=== PATIENT | female | born 1970 | race Hispanic/Latino ===

== ENCOUNTER 2016-08-07 13:57 | Emergency (ER) | payer MEDICAID ==
[2016-08-07 13:57] VITALS: BMI 26.0
[2016-08-07 14:27] VITALS: RESP 20
--- NOTE | 2016-08-07 14:43 | ED PDOC ---
Arrival/HPI - General Chief Complaint: Dental Pain Time Seen by Provider: 08/07/16 14:27 Historian: Patient - History of Present Illness Narrative History of Present Illness (Text): 08/07/16 14:40 45yo female present with complaint of left sided upper gum pain/swelling. States she was achy and feverish the last few days ago. Developed blister on her hard palate. States it resolved and then came to the left upper gum. Denies drooling, dsphagia, current fever, chills, discharge, any other complaint. Past Medical History - Provider Review Nursing Documentation Reviewed: Yes - Past History Past History: No Previous - Infectious Disease Hx of Infectious Diseases: None - Tetanus Immunization Tetanus Immunization: Unknown - Reproductive Menopause: Yes - Pulmonary Hx Bronchitis: Yes - Musculoskeletal/Rheumatological Hx Falls: No - Gastrointestinal Hx Gastrointestinal Ulcer: Yes - Genitourinary/Gynecological Hx Reproductive Disorders: Yes (ENDOMETRIOSIS/LOBULAR UTERUS) - Psychiatric Hx Depression: Yes Hx Emotional Abuse: No Hx Physical Abuse: No Hx Substance Use: No Other/Comment: ADHD - Surgical History Hx Appendectomy: Yes Hx Tonsillectomy: Yes - Anesthesia Hx Anesthesia: Yes Hx Anesthesia Reactions: No Hx Malignant Hyperthermia: No - Suicidal Assessment Feels Threatened In Home Enviroment: No Family/Social History - Physician Review Nursing Documentation Reviewed: Yes Family/Social History: Unknown Family HX Smoking Status: Never Smoked Hx Alcohol Use: No Hx Substance Use: No Hx Substance Use Treatment: No Allergies/Home Meds Allergies/Adverse Reactions: Allergies No Known Allergies Allergy (Verified 08/07/16 14:27) Home Medications: Home Meds Medication Instructions Recorded Confirmed Amphetamine Salt Combination 10 mg PO DAILY 08/07/16 08/07/16 [Adderall] traZODone [trazodone Hydrochloride] 100 mg PO HS 08/07/16 08/07/16 Review of Systems - Physician Review All systems were reviewed & negative as marked: Yes - Review of Systems Constitutional: Normal Eyes: Normal ENT: Other (Gum blister) Respiratory: Normal Cardiovascular: Normal Gastrointestinal: Normal Genitourinary Female: Normal Musculoskeletal: Normal Skin: Normal Neurological: Normal Endocrine: Normal Hemo/Lymphatic: Normal Psychiatric: Normal Physical Exam Vital Signs Reviewed: Yes Vital Signs Temp Pulse Resp BP Pulse Ox 08/07/16 15:44 98 F 87 20 128/74 100 08/07/16 14:57 98.6 F 08/07/16 14:22 98.4 F 85 20 134/90 99 Temperature: Afebrile Blood Pressure: Normal Pulse: Regular Respiratory Rate: Normal Appearance: Positive for: Well-Appearing, Non-Toxic, Comfortable Pain Distress: None Mental Status: Positive for: Alert and Oriented X 3 - Systems Exam Head: Present: Atraumatic, Normocephalic Pupils: Present: PERRL Extroacular Muscles: Present: EOMI Conjunctiva: Present: Normal Mouth: Present: Moist Mucous Membranes, Other (Blister noted to left upper gum) Neck: Present: Normal Range of Motion Respiratory/Chest: Present: Clear to Auscultation, Good Air Exchange. No: Respiratory Distress, Accessory Muscle Use Cardiovascular: Present: Regular Rate and Rhythm, Normal S1, S2. No: Murmurs Abdomen: Present: Normal Bowel Sounds. No: Tenderness, Distention, Peritoneal Signs Back: Present: Normal Inspection Upper Extremity: Present: Normal Inspection. No: Cyanosis, Edema Lower Extremity: Present: Normal Inspection. No: Edema Neurological: Present: GCS=15, CN II-XII Intact, Speech Normal Skin: Present: Warm, Dry, Normal Color. No: Rashes Psychiatric: Present: Alert, Oriented x 3, Normal Insight, Normal Concentration Medical Decision Making ED Course and Treatment: 08/07/16 18:15 Pt was comfortable in ED . She was treated with viscous lido for analgesic effect on her canker sore. Referred to her PMD. TRT ED for any new or worsening symptoms. - Medication Orders Current Medication Orders: Discontinued Medications Acetaminophen (Tylenol 325mg Tab) 650 mg PO STAT STA Stop: 08/07/16 14:41 Last Admin: 08/07/16 14:57 Dose: 650 mg Lidocaine HCl (Lidocaine 2% Viscous) 15 ml PO ONCE STA Stop: 08/07/16 14:40 Last Admin: 08/07/16 14:59 Dose: 15 ml Disposition/Present on Arrival - Present on Arrival Any Indicators Present on Arrival: No History of DVT/PE: No History of Uncontrolled Diabetes: No Urinary Catheter: No History of Decub. Ulcer: No History Surgical Site Infection Following: None - Disposition Have Diagnosis and Disposition been Completed?: Yes Diagnosis: Canker sores oral Disposition: HOME/ ROUTINE Disposition Time: 14:45 Patient Plan: Discharge Condition: STABLE Discharge Instructions (ExitCare): Canker Sores (ED) Additional Instructions: Follow up with your Doctor Return to ED for any new or worsening symptoms Prescriptions: Mouthwash [Breath Doran] 6 ml MM DAILY #100 spray
[2016-08-07 15:44] VITALS: BP 128/74; PULSE 87; TEMP 98; O2SAT 100
== END 2016-08-07 15:45 | disposition home or self-care (01) ==
LOC: ED 13:57
DX: K12.0 Recurrent oral aphthae (principal)

== ENCOUNTER 2017-06-21 15:29 | Emergency (ER) | payer MEDICAID, OTHER ==
[2017-06-21 15:57] VITALS: RESP 18; O2SAT 100
[2017-06-21 16:00] VITALS: BMI 29.2
--- NOTE | 2017-06-21 17:01 | ED PDOC ---
Arrival/HPI - General Chief Complaint: ENT Problem Time Seen by Provider: 06/21/17 15:48 Historian: Patient - History of Present Illness Narrative History of Present Illness (Text): 06/21/17 16:58 46yo female with no PMhx who present with a prescription from Dr. Thornton requesting a nose swab. Pt reports multiple histories of sinusitis. states she was treated by bother her PMD and ENT with different antibiotics for the sinus without relieve. states his PMD saw her and referred her for the nose swab. she also report upper back pain with deep inspiration for months now. Notes that the pain is intermittent. She denies chest pain, SOB, cough, diaphoresis, trauma , LE edema, calf pain, nausea, vomiting, abdominal pain, any other complaint. Past Medical History - Provider Review Nursing Documentation Reviewed: Yes - Past History Past History: No Previous - Infectious Disease Hx of Infectious Diseases: None - Tetanus Immunization Tetanus Immunization: Unknown - Reproductive Menopause: Yes - Cardiac Hx Cardiac Disorders: No - Pulmonary Hx Bronchitis: Yes - Neurological Hx Neurological Disorder: No Hx Dizziness: No - HEENT Hx HEENT Disorder: No - Renal Hx Renal Disorder: No - Endocrine/Metabolic Hx Endocrine Disorders: No - Musculoskeletal/Rheumatological Hx Falls: No - Gastrointestinal Hx Gastrointestinal Ulcer: Yes - Genitourinary/Gynecological Hx Reproductive Disorders: Yes (ENDOMETRIOSIS/LOBULAR UTERUS) - Psychiatric Hx Depression: Yes Hx Emotional Abuse: No Hx Physical Abuse: No Hx Substance Use: No Other/Comment: ADHD - Surgical History Hx Appendectomy: Yes Hx Tonsillectomy: Yes - Anesthesia Hx Anesthesia: Yes Hx Anesthesia Reactions: No Hx Malignant Hyperthermia: No - Suicidal Assessment Feels Threatened In Home Enviroment: No Family/Social History - Physician Review Nursing Documentation Reviewed: Yes Family/Social History: Unknown Family HX Smoking Status: Never Smoked Hx Alcohol Use: No Hx Substance Use: No Hx Substance Use Treatment: No Allergies/Home Meds Allergies/Adverse Reactions: Allergies No Known Allergies Allergy (Verified 08/07/16 14:27) Home Medications: Home Meds Medication Instructions Recorded Confirmed Amphetamine Salt Combination 10 mg PO DAILY 08/07/16 06/21/17 [Adderall] Review of Systems - Physician Review All systems were reviewed & negative as marked: Yes - Review of Systems Constitutional: Normal Eyes: Normal ENT: Rhinorrhea Respiratory: Normal Cardiovascular: Normal Gastrointestinal: Normal Genitourinary Female: Normal Musculoskeletal: Back Pain Skin: Normal Neurological: Normal Endocrine: Normal Hemo/Lymphatic: Normal Psychiatric: Normal Physical Exam Vital Signs Reviewed: Yes Vital Signs Temp Pulse Resp BP Pulse Ox 06/21/17 15:47 98.1 F 89 18 139/85 100 Temperature: Afebrile Blood Pressure: Normal Pulse: Regular Respiratory Rate: Normal Appearance: Positive for: Well-Appearing, Non-Toxic, Comfortable Pain Distress: None Mental Status: Positive for: Alert and Oriented X 3 - Systems Exam Head: Present: Atraumatic, Normocephalic Pupils: Present: PERRL Extroacular Muscles: Present: EOMI Conjunctiva: Present: Normal Mouth: Present: Moist Mucous Membranes Nose (Internal): Present: Normal Inspection Neck: Present: Normal Range of Motion Respiratory/Chest: Present: Clear to Auscultation, Good Air Exchange. No: Respiratory Distress, Accessory Muscle Use Cardiovascular: Present: Regular Rate and Rhythm, Normal S1, S2. No: Murmurs Abdomen: Present: Normal Bowel Sounds. No: Tenderness, Distention, Peritoneal Signs Back: Present: Normal Inspection. No: CVA Tenderness, Midline Tenderness, Paraspinal Tenderness, Pain with Leg Raise Upper Extremity: Present: Normal Inspection. No: Cyanosis, Edema Lower Extremity: Present: Normal Inspection. No: Edema Neurological: Present: GCS=15, CN II-XII Intact, Speech Normal Skin: Present: Warm, Dry, Normal Color. No: Rashes Psychiatric: Present: Alert, Oriented x 3, Normal Insight, Normal Concentration Medical Decision Making - Lab Interpretations Lab Results: Lab Results 06/21/17 17:00: Influenza Typ A,B (EIA) Negative for flu a/b - RAD Interpretation Radiology Orders: 06/21/17 18:02 CHEST TWO VIEWS (PA/LAT) [RAD] Stat Disposition/Present on Arrival - Present on Arrival Any Indicators Present on Arrival: No History of DVT/PE: No History of Uncontrolled Diabetes: No Urinary Catheter: No History of Decub. Ulcer: No History Surgical Site Infection Following: None - Disposition Have Diagnosis and Disposition been Completed?: Yes Diagnosis: Back pain Disposition: HOME/ ROUTINE Disposition Time: 18:30 Patient Plan: Discharge Patient Problems: Current Active Problems Problem Status Onset Back pain Acute Condition: STABLE Discharge Instructions (ExitCare): Upper Back Pain (DC) Additional Instructions: Follow up with your doctor Return to ED for any new symptoms Referrals: Gerber Thornton MD [Primary Care Provider] - Follow up with primary Forms: [employer] ([place])
--- NOTE | 2017-06-21 18:24 | RAD ---
HISTORY: COMPARISON: 03/30/2016 TECHNIQUE: Chest PA and lateral FINDINGS: LINES AND TUBES: None. LUNG AND PLEURA: The lungs are well inflated and clear. HEART AND MEDIASTINUM: The heart is not enlarged. The hilar and mediastinal contours are within normal limits. SKELETAL STRUCTURES: The bony structures are within normal limits for the patient's age. VISUALIZED UPPER ABDOMEN: Normal. OTHER FINDINGS: None. IMPRESSION: No acute findings. Please note small pulmonary nodules may not be identified on plain radiographs. If there is a clinical concern, a CT scan of the thorax without intravenous contrast is recommended for further evaluation.
[2017-06-21 18:44] VITALS: BP 118/87; PULSE 88; TEMP 98
== END 2017-06-21 18:53 | disposition home or self-care (01) ==
LOC: ED 15:29
DX: M54.9 Dorsalgia, unspecified (principal)

== ENCOUNTER 2018-05-02 12:41 | Outpatient (CLI) | payer MEDICAID | END 2018-05-02 12:42 | disposition home or self-care (01) | LOC: LAB 12:41 ==

== ENCOUNTER 2018-05-04 10:03 | Emergency (ER) | payer MEDICAID ==
[2018-05-04 10:03] VITALS: BMI 29.2
--- NOTE | 2018-05-04 10:26 | ED PDOC ---
Arrival/HPI - General Historian: Patient - History of Present Illness Narrative History of Present Illness (Text): 05/04/18 10:19 47 y/o female, pmh including chronic upper back pain with no new injury or fall but takes nsaids, nkda, c/o fatigue x 2 weeks. Pt. stated that she hasn't been feeling well for the past few weeks, been feeling fatigue/tired with no leg or calf swelling, not on control and she is post menopausal for years. Pt. stated that she has no stool discoloration, woke up this morning with an episode of nose bleed but resolved. Pt. has no night sweat/weight loss, no other medical or psychological complaints. Past Medical History - Provider Review Nursing Documentation Reviewed: Yes - Past History Past History: No Previous - Infectious Disease Hx of Infectious Diseases: None - Tetanus Immunization Tetanus Immunization: Unknown - Reproductive Currently : No - Cardiac Hx Cardiac Disorders: No - Pulmonary Hx Bronchitis: Yes - Neurological Hx Neurological Disorder: No Hx Dizziness: No - HEENT Hx HEENT Disorder: No - Renal Hx Renal Disorder: No - Endocrine/Metabolic Hx Endocrine Disorders: No - Musculoskeletal/Rheumatological Hx Falls: No - Gastrointestinal Hx Gastrointestinal Ulcer: Yes - Genitourinary/Gynecological Hx Reproductive Disorders: Yes (ENDOMETRIOSIS/LOBULAR UTERUS) - Psychiatric Hx Depression: Yes Hx Emotional Abuse: No Hx Physical Abuse: No Hx Substance Use: No Other/Comment: ADHD - Surgical History Hx Appendectomy: Yes Hx Tonsillectomy: Yes - Anesthesia Hx Anesthesia: Yes Hx Anesthesia Reactions: No Hx Malignant Hyperthermia: No - Suicidal Assessment Feels Threatened In Home Enviroment: No Family/Social History - Physician Review Nursing Documentation Reviewed: Yes Family/Social History: Unknown Family HX Smoking Status: Never Smoked Hx Alcohol Use: No Hx Substance Use: No Hx Substance Use Treatment: No Allergies/Home Meds Allergies/Adverse Reactions: Allergies No Known Allergies Allergy (Verified 05/04/18 10:22) Home Medications: Home Meds Medication Instructions Recorded Confirmed Amphetamine Salt Combination 10 mg PO DAILY 08/07/16 05/04/18 [Adderall] Review of Systems - Review of Systems Constitutional: Fatigue. absent: Fevers Eyes: absent: Vision Changes ENT: absent: Hearing Changes Respiratory: absent: Cough, Sputum, Wheezing Cardiovascular: absent: Chest Pain Gastrointestinal: absent: Abdominal Pain, Diarrhea, Nausea, Vomiting, Hematemesis Skin: absent: Rash, Pruritis Neurological: absent: Headache, Dizziness, Focal Weakness, Gait Changes, Seizure Psychiatric: absent: Anxiety, Depression, Suicidal Ideation Physical Exam Vital Signs Reviewed: Yes Vital Signs Temp Pulse Resp BP Pulse Ox 05/04/18 10:16 97.8 F 123 H 17 160/100 H 99 Temperature: Afebrile Blood Pressure: Hypertensive Pulse: Tachycardic Respiratory Rate: Normal Appearance: Positive for: Well-Appearing, Non-Toxic Pain Distress: None Mental Status: Positive for: Alert and Oriented X 3 - Systems Exam Head: Present: Atraumatic, Normocephalic Pupils: Present: PERRL Extroacular Muscles: Present: EOMI Conjunctiva: Present: Normal Mouth: Present: Moist Mucous Membranes Neck: Present: Normal Range of Motion Respiratory/Chest: Present: Clear to Auscultation, Good Air Exchange. No: Respiratory Distress, Accessory Muscle Use, Wheezes, Decreased Breath Sounds, Rales, Retracting, Rhonchi, Tachypneic, Tender to Palpation Cardiovascular: Present: Regular Rate and Rhythm, Normal S1, S2. No: Murmurs Abdomen: No: Tenderness, Distention, Peritoneal Signs Back: Present: Normal Inspection Upper Extremity: Present: Normal Inspection. No: Cyanosis, Edema Lower Extremity: Present: Normal Inspection. No: Edema Neurological: Present: GCS=15, CN II-XII Intact, Speech Normal, Motor Func Grossly Intact, Gait Normal, Memory Normal, Other (normal finger to nose test, normal heel to adams test, no focal neurological deficits) Skin: Present: Warm, Dry, Normal Color. No: Rashes Psychiatric: Present: Alert, Oriented x 3, Normal Insight, Anxious Medical Decision Making ED Course and Treatment: 05/04/18 10:34 Differential including but not limited to: hyperthyroidism vs. thyroid storm vs. PE vs. CHF vs. anemia vs. Pneumonia -Labs -EKG -CXR -IVF/pepcid -Observe and reassess 05/04/18 12:29 -EKG: ST @ 122 BPM, no ST elevation or depression, T wave inversion lead III. -Chest xray: ER wet read show no active disease -Labs show no acute findings -Thyroid profile: within normal limit -BNP within normal limit -TROP is negative after 24 hours -DIMER is negative -UA show +UTI -UDS is negative -Alcohol level is negative -vitals repeat after IVF, vitally stable, non-anxious. -Pt. feels better, no headache or dizziness, no numbness or tingling, symptoms resolved with IVF, discussed about the labs and radiology results, request to be discharged without any further evaluation or test. 05/04/18 13:36 -Pt. is asymptomatic, observed for additional 1 hour, request to be discharged. -Discharge home with education on follow up with your own pmd and flexographic printing machinist within 2 days, return to the ER for any new or worsening signs or symptoms. - EKG Interpretation EKG Interpretation (Text): 05/04/18 10:36 -EKG: ST @ 122 BPM, no ST elevation or depression, T wave inversion lead III. Interpreted by ED Physician: Yes Type: 12 lead EKG - PA / MANUFACTURING ENGINEER PAINT / Resident Statement MD/DO has reviewed & agrees with the documentation as recorded. Disposition/Present on Arrival - Present on Arrival Any Indicators Present on Arrival: No History of DVT/PE: No History of Uncontrolled Diabetes: No Urinary Catheter: No History of Decub. Ulcer: No History Surgical Site Infection Following: None - Disposition Have Diagnosis and Disposition been Completed?: Yes Diagnosis: Fatigue Disposition: HOME/ ROUTINE Disposition Time: 13:38 Patient Plan: Discharge Patient Problems: Current Active Problems Problem Status Onset Fatigue Acute Condition: IMPROVED Discharge Instructions (ExitCare): Fatigue Additional Instructions: Discharge home with education on follow up with your own pmd and flexographic printing machinist within 2 days, return to the ER for any new or worsening signs or symptoms. Referrals: Gerber Thornton MD [Primary Care Provider] - Follow up with primary Robert Reich MD [Staff Provider] - Follow up with primary Jann Kaplan MD [Staff Provider] - Follow up with primary Forms: WORK NOTE
[2018-05-04] MEDS ORDERED: Sodium Chloride 0.9% 1,000 ML IV STA (10:27)
[2018-05-04 10:57] LABS: BASO # 0.02 K/mm3 (0.0-2.0); BASO % 0.3 % (0.0-3.0); EOS # 0.1 (0.0-0.7); EOS % 1.3 % (1.5-5.0); HEMOGLOBIN 15.5 g/dL (12.0-16.0); LYMPH # 2.1 (1.2-3.4); LYMPH % 30.5 % (22.0-35.0); MEAN CELL VOLUME 87.9 fl (80.0-105.0); MEAN CORPUSCULAR HEMOGLOBIN 30.2 pg (25.0-35.0); MEAN CORPUSCULAR HGB CONC 34.3 g/dl (31.0-37.0); MEAN PLATELET VOLUME 9.4 fl (7.0-11.0); MONO # 0.5 (0.1-0.6); MONO % 7.3 % (1.0-6.0); RBC 5.14 10^6/uL (3.5-6.1); RED CELL DISTRIBUTION WIDTH 12.4 % (11.5-14.5); WHITE BLOOD COUNT 6.8 10^3/uL (4.5-11.0)
[2018-05-04 10:59] LABS: PH,URINE 6.5 (4.7-8.0); URINE APPEARANCE CLEAR (CLEAR); URINE BILIRUBIN NEGATIVE (NEGATIVE); URINE BLOOD NEGATIVE (NEGATIVE); URINE COLOR YELLOW (YELLOW); URINE GLUCOSE (UA) NEGATIVE (NEGATIVE); URINE LEUKOCYTE ESTERASE SMALL Leu/uL (NEGATIVE); URINE PROTEIN TRACE mg/dL (<30 mg/dL); URINE UROBILINOGEN 0.2 E.U./dL (<1 E.U./dL)
[2018-05-04 11:08] LABS: ALB/GLOB RATIO 1.4 (1.1-1.8); ALBUMIN 4.9 g/dL (3.0-4.8); ALT/SGPT 34 U/L (7-56); AST/SGOT 29 U/L (14-36); BLOOD UREA NITROGEN 16 mg/dL (7-21); CALCIUM 9.8 mg/dL (8.4-10.5); GFR NON-AFRICAN AMERICAN > 60; LIPASE 85 U/L (23-300)
[2018-05-04 11:09] LABS: URINE BACTERIA FEW /hpf; URINE RBC 0 - 2 /hpf (0-2)
[2018-05-04 11:13] LABS: INR 1.07; PARTIAL THROMBOPLASTIN TIME 41.4 Seconds (26.9-38.3); PROTHROMBIN TIME 12.1 SECONDS (9.4-12.5)
[2018-05-04 11:17] LABS: D DIMER < 200 ng/mlDDU (0-243)
[2018-05-04 11:19] LABS: TROPONIN I < 0.01 ng/mL
[2018-05-04 11:25] VITALS: RESP 18
[2018-05-04 11:29] LABS: FREE T4 1.13 ng/dL (0.78-2.19)
[2018-05-04 12:11] LABS: BARBITURATES, UR NEGATIVE (NEGATIVE); BENZODIAZEPINES, UR NEGATIVE (NEGATIVE); OPIATES, UR NEGATIVE (NEGATIVE); PHENCYCLIDINE, UR NEGATIVE (NEGATIVE)
[2018-05-04] MEDS ORDERED: Sodium Chloride 0.9% 1,000 ML IV SCH ×2 (12:30→12:36)
[2018-05-04 12:35] VITALS: TEMP 98.2
[2018-05-04 13:46] VITALS: BP 111/79; PULSE 73; O2SAT 99
--- NOTE | 2018-05-04 15:34 | RAD ---
Date of service: 05/04/2018 HISTORY: shortness of breath/back pain COMPARISON: Chest radiographs 06/21/2017. TECHNIQUE: Chest PA and lateral FINDINGS: LUNGS: No active pulmonary disease. PLEURA: No significant pleural effusion identified. No pneumothorax apparent. CARDIOVASCULAR: No aortic atherosclerotic calcification present. Normal cardiac size. No pulmonary vascular congestion. OSSEOUS STRUCTURES: No significant abnormalities. VISUALIZED UPPER ABDOMEN: Normal. OTHER FINDINGS: None. IMPRESSION: No acute cardiopulmonary disease appreciated.
--- NOTE | 2018-05-04 16:26 | CARD ---
APPROVED REPORT Date of service: 05/04/2018 EKG Measurement Heart [id number] <Conclusion> Sinus tachycardia Nonspecific T wave abnormality Abnormal ECG
== END 2018-05-04 14:11 | disposition home or self-care (01) ==
LOC: ED 10:03
DX: R53.83 Other fatigue (principal)
CPT/HCPCS: 71046; 80053; 80320; 80324; 80345; 80346; 80349; 80353; 80358; 80361; 81001; 81025; 83690; 83880; 83992; 84439; 84443; 84484; 84703; 85025; 85378; 85610; 85730; 86850; 86900; 87086; 93005; 96361; 96374; 99285; J7030

== ENCOUNTER 2018-05-04 15:33 | Observation (INO) | payer MEDICAID ==
--- NOTE | 2018-05-04 16:42 | ED PDOC ---
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 Patient was treated earlier in emergency department this morning for epistaxis and was discharged home. Pt had a chest X-ray performed with negative findings and labs show Hb of 15 and normal chemistry other than elevated alk phos earlier this morning. Patient states onset of symptoms after reaching home prompting her to present to the emergency department. Patient denies any fevers, chills, headache, dizziness, chest pain, shortness of breath, dyspnea on exertion, cough, nausea, vomiting, diarrhea, back pain, neck pain, or any other complaint. See labs from ER visit earlier today 05/04/18 18:16 05/04/18 18:17 Past Medical History - Provider Review Nursing Documentation Reviewed: Yes - Past History Past History: No Previous - Infectious Disease Hx of Infectious Diseases: None - Tetanus Immunization Tetanus Immunization: Unknown - Reproductive Currently : No - Cardiac Hx Cardiac Disorders: No - Pulmonary Hx Bronchitis: Yes - Neurological Hx Neurological Disorder: No Hx Dizziness: No - HEENT Hx HEENT Disorder: No - Renal Hx Renal Disorder: No - Endocrine/Metabolic Hx Endocrine Disorders: No - Musculoskeletal/Rheumatological Hx Falls: No - Gastrointestinal Hx Gastrointestinal Ulcer: Yes - Genitourinary/Gynecological Hx Reproductive Disorders: Yes (ENDOMETRIOSIS/LOBULAR UTERUS) - Psychiatric Hx Depression: Yes Hx Emotional Abuse: No Hx Physical Abuse: No Hx Substance Use: No Other/Comment: ADHD - Surgical History Hx Appendectomy: Yes Hx Tonsillectomy: Yes - Anesthesia Hx Anesthesia: Yes Hx Anesthesia Reactions: No Hx Malignant Hyperthermia: No - Suicidal Assessment Feels Threatened In Home Enviroment: No Family/Social History - Physician Review Nursing Documentation Reviewed: Yes Family/Social History: No Known Family HX Smoking Status: Never Smoked Hx Alcohol Use: No Hx Substance Use: No Hx Substance Use Treatment: No Allergies/Home Meds Allergies/Adverse Reactions: Allergies No Known Allergies Allergy (Verified 05/04/18 10:22) Home Medications: Home Meds Medication Instructions Recorded Confirmed Amphetamine Salt Combination 10 mg PO DAILY 08/07/16 05/04/18 [Adderall] Review of Systems - Review of Systems Constitutional: absent: Fevers Eyes: absent: Vision Changes Respiratory: absent: SOB, Cough Cardiovascular: absent: Chest Pain Gastrointestinal: Abdominal Pain, Other (dark stool). absent: Constipation, Diarrhea, Nausea, Vomiting, Hematochezia Genitourinary Female: absent: Dysuria, Frequency, Hematuria, Urine Output Changes Musculoskeletal: absent: Back Pain, Neck Pain Skin: absent: Rash Neurological: absent: Headache, Dizziness Psychiatric: absent: Anxiety Physical Exam Vital Signs Reviewed: Yes Vital Signs Temp Pulse Resp BP Pulse Ox 05/04/18 15:33 98.8 F 90 18 147/92 H 99 Temperature: Afebrile Blood Pressure: Normal Pulse: Regular Respiratory Rate: Normal Appearance: Positive for: Well-Appearing, Non-Toxic, Comfortable Pain Distress: None Mental Status: Positive for: Alert and Oriented X 3 - Systems Exam Head: Present: Atraumatic, Normocephalic Pupils: Present: PERRL Extroacular Muscles: Present: EOMI Conjunctiva: Present: Normal Mouth: Present: Moist Mucous Membranes Nose (External): Present: Atraumatic Nose (Internal): Present: Normal Inspection Neck: Present: Normal Range of Motion Respiratory/Chest: Present: Clear to Auscultation, Good Air Exchange. No: Respiratory Distress, Accessory Muscle Use Cardiovascular: Present: Regular Rate and Rhythm, Normal S1, S2. 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 No: Occult Blood Back: Present: Normal Inspection Upper Extremity: Present: Normal Inspection. No: Cyanosis, Edema Lower Extremity: Present: Normal Inspection. No: Edema Neurological: Present: GCS=15, CN II-XII Intact, Speech Normal Skin: Present: Warm, Dry, Normal Color. No: Rashes Psychiatric: Present: Alert, Oriented x 3, Normal Insight, Normal Concentration Medical Decision Making ED Course and Treatment: 05/04/18 15:54 Impression: Patient is a 47 year old female who presents to the Emergency department with complaints of generalized abdominal pain and rectal bleeding after being discharged home this morning. Plan: -- CT A / P IV Contrast -- Reassess and disposition Prior Visits: Notes and results from previous visits were reviewed. Progress Notes: 05/04/18 17:54 CT A / P w/ IV Contrast as reviewed by radiologist shows that: FINDINGS: LOWER THORAX: No visible consolidation, pleural effusion, or pneumothorax. LIVER: 11 mm left hepatic lobe hypodense mass, indeterminate. 16 mm hypodense mass within the medial right hepatic lobe (series 3, image 46), indeterminate. GALLBLADDER AND BILE DUCTS: Unremarkable. PANCREAS: Unremarkable. SPLEEN: Unremarkable. ADRENALS: Unremarkable. KIDNEYS AND URETERS: The kidneys enhance symmetrically. No hydronephrosis or obstructing calculus identified. VASCULATURE: No aortic aneurysm. No atherosclerotic calcification or mural plaque present. BOWEL: Stomach is nondistended. Lack of oral contrast limits evaluation for bowel pathology. Bowel loops appear within normal limits of caliber without evidence of obstruction. APPENDIX: No secondary signs of acute appendicitis. PERITONEUM: No significant free fluid. No definite free air. LYMPH NODES: No bulky adenopathy identified. BLADDER: Unremarkable. REPRODUCTIVE: Unremarkable. BONES: No acute osseous abnormality is detected. OTHER FINDINGS: None. IMPRESSION: 11 mm left hepatic lobe and 16 mm right hepatic lobe hypodense masses, indeterminate. Dedicated cross-sectional imaging may be considered as outpatient for further characterization. Additional incidental findings as above. 05/04/18 17:[address] Thornton who is aware and agrees with ED management plan, accepts patient admission under his service. - RAD Interpretation Radiology Orders: 05/04/18 16:15 ABD & PELVIS IV CONTRAST ONLY [CT] Stat Special Class Welder: Radiologist - Scribe Statement The provider has reviewed the documentation as recorded by the Dariela Boss training with Hal Peraza All medical record entries made by the Judyibdarcie were at my direction and personally dictated by me. I have reviewed the chart and agree that the record accurately reflects my personal performance of the history, physical exam, medical decision making, and the department course for this patient. I have also personally directed, reviewed, and agree with the discharge instructions and disposition. Disposition/Present on Arrival - Present on Arrival Any Indicators Present on Arrival: No History of DVT/PE: No History of Uncontrolled Diabetes: No Urinary Catheter: No History of Decub. Ulcer: No History Surgical Site Infection Following: None - Disposition Have Diagnosis and Disposition been Completed?: Yes Diagnosis: Liver mass Disposition: HOSPITALIZED Disposition Time: 05:57 Patient Problems: Current Active Problems Problem Status Onset Liver mass Acute Condition: FAIR Referrals: Gerber Thornton MD [Primary Care Provider] - Follow up with primary Forms: [employer] Experience (Macedonian)
[2018-05-04] MEDS ORDERED: Iohexol 350 MG/100 ML VIAL ONE (16:57)
--- NOTE | 2018-05-04 17:47 | CT ---
Date of service: 05/04/2018 PROCEDURE: CT Abdomen and Pelvis with contrast HISTORY: generalized abdominal pain COMPARISON: CT abdomen and pelvis with contrast performed 01/07/16 TECHNIQUE: Contrast dose: 100 mL Omnipaque 350 Radiation dose: Total exam DLP = 495.26 mGy-cm. This CT exam was performed using one or more of the following dose reduction techniques: Automated exposure control, adjustment of the mA and/or kV according to patient size, and/or use of iterative reconstruction technique. FINDINGS: LOWER THORAX: No visible consolidation, pleural effusion, or pneumothorax. LIVER: 11 mm left hepatic lobe hypodense mass, indeterminate. 16 mm hypodense mass within the medial right hepatic lobe (series 3, image 46), indeterminate. GALLBLADDER AND BILE DUCTS: Unremarkable. PANCREAS: Unremarkable. SPLEEN: Unremarkable. ADRENALS: Unremarkable. KIDNEYS AND URETERS: The kidneys enhance symmetrically. No hydronephrosis or obstructing calculus identified. VASCULATURE: No aortic aneurysm. No atherosclerotic calcification or mural plaque present. BOWEL: Stomach is nondistended. Lack of oral contrast limits evaluation for bowel pathology. Bowel loops appear within normal limits of caliber without evidence of obstruction. APPENDIX: No secondary signs of acute appendicitis. PERITONEUM: No significant free fluid. No definite free air. LYMPH NODES: No bulky adenopathy identified. BLADDER: Unremarkable. REPRODUCTIVE: Unremarkable. BONES: No acute osseous abnormality is detected. OTHER FINDINGS: None. IMPRESSION: 11 mm left hepatic lobe and 16 mm right hepatic lobe hypodense masses, indeterminate. Dedicated cross-sectional imaging may be considered as outpatient for further characterization. Additional incidental findings as above.
[2018-05-04] MEDS ORDERED: Sodium Chloride 0.9% 1,000 ML IV STA (17:57)
[2018-05-04] MEDS: Sodium Chloride 0.9% 1,000 ML IV SCH (22:01)
[2018-05-04 22:51] VITALS: RESP 20
[2018-05-04 23:50] VITALS: BMI 28.3
[2018-05-05 08:02] VITALS: PULSE 98
--- NOTE | 2018-05-05 10:58 | CP.PCM.CON ---
<Celestine Hunt - Last Filed: 05/05/18 11:52> History of Present Illness - History of Present Illness History of Present Illness: GI Consult Note for Dr. Jasso Reason for Consultation: Liver Lesion and r/o GI bleed Patient is a 47 yo F with PMH of anxiety/depression and ADD presented initially to [facility] due to epistaxis and subsequently discharged. However, patient returned to ED shortly after complaining of melanotic stools and BRBPR. Patient reports no prior occurrence, nor does she complain of abdominal pain, fever, chills, skin color change, CP, SOB, n/v/d, dysuria, NUGENT, or dizziness. Patient states that she had an EGD and colonoscopy about 7 years ago at [facility] due to abdominal pain and distention, which showed duodenitis, gastritis, and diverticulosis was found at that time. GI is consulted due to [address] liver lesions found a CT and possible GI bleed. PMH: Anxiety/depression, ADD Surg: Tonsillectomy All: NKDA SH: Denied tobacco, EtOH, and illicit drug use FHx: Lung CA (mother) Medications: Adderall and Trazodone (admits to intermittent use of both) Review of Systems - Review of Systems All systems: reviewed and no additional remarkable complaints except (12 point ROS reviewed and is negative other than what is stated in HPI.) Past Patient History - Infectious Disease Hx of Infectious Diseases: None - Tetanus Immunizations Tetanus Immunization: Unknown - Past Social History Smoking Status: Former Smoker - CARDIAC Hx Cardiac Disorders: No - PULMONARY Hx Respiratory Disorders: No - NEUROLOGICAL Hx Neurological Disorder: No - HEENT Hx HEENT Problems: No - RENAL Hx Chronic Kidney Disease: No - ENDOCRINE/METABOLIC Hx Endocrine Disorders: No - HEMATOLOGICAL/ONCOLOGICAL Hx Blood Disorders: No - INTEGUMENTARY Hx Dermatological Problems: No - MUSCULOSKELETAL/RHEUMATOLOGICAL Hx Musculoskeletal Disorders: No Hx Falls: No - GASTROINTESTINAL Hx Gastrointestinal Disorders: Yes - GENITOURINARY/GYNECOLOGICAL Hx Genitourinary Disorders: No - PSYCHIATRIC Hx Psychophysiologic Disorder: Yes Hx Anxiety: Yes Hx Depression: Yes Other/Comment: ADHD - SURGICAL HISTORY Hx Surgeries: Yes Hx Appendectomy: Yes Other/Comment: tonsillectomy - ANESTHESIA Hx Anesthesia: Yes Hx Anesthesia Reactions: No Hx Malignant Hyperthermia: No Meds Home Medications: Home Medication List Medication Instructions Recorded Confirmed Type Omeprazole 20 mg PO DAILY #30 capsule. 05/05/18 Rx Zaleplon [Sonata] 5 mg PO HS PRN #5 cap 05/05/18 Rx hydrOXYzine Pamoate [Vistaril] 50 mg PO Q8 PRN #15 cap 05/05/18 Rx Allergies/Adverse Reactions: Allergies Allergy/AdvReac Type Severity Reaction Status Date / Time No Known Allergies Allergy Verified 05/04/18 10:22 - Medications Medications: Current Medications Famotidine (Pepcid) 40 mg PO DAILY [facility] Last Admin: 05/05/18 10:39 Dose: 40 mg Hydroxyzine Pamoate (Vistaril) 50 mg PO Q8 PRN; Protocol PRN Reason: Anxiety Sodium Chloride (Sodium Chloride 0.9%) 1,000 mls @ 80 mls/hr IV .[id number] [facility] Last Admin: 05/04/18 22:01 Dose: 80 mls/hr Ibuprofen (Motrin Tab) 400 mg PO Q6H PRN PRN Reason: Pain, moderate (4-7) Last Admin: 05/05/18 10:38 Dose: 400 mg Zaleplon (Sonata) 5 mg PO HS PRN PRN Reason: Insomnia Results - Vital Signs Recent Vital Signs: Last Vital Signs Temp 98.1 F 05/05/18 08:02 Pulse 98 H 05/05/18 08:02 Resp 20 05/05/18 08:02 BP 128/77 05/05/18 08:02 Pulse Ox 99 05/05/18 08:02 Assessment & Plan - Assessment and Plan (Free Text) Assessment: 47 yo F with PMH of ADD and anxiety/depression presents to [facility] due to melena/brbpr. GI consulted for liver lesions and possible GI bleed. 1. Possible GI bleed 2. 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 Jasso. Morgan Hunt, PGY2 <Debbie Jasso V - Last Filed: 05/05/18 23:35> Results - Vital Signs Recent Vital Signs: Last Vital Signs Temp 98.6 F 05/05/18 15:49 Pulse 98 H 05/05/18 15:49 Resp 20 05/05/18 15:49 BP 139/85 05/05/18 15:49 Pulse Ox 98 05/05/18 15:49 - Labs Labs: Laboratory Results - last 24 hr 05/05/18 05/05/18 12:00 12:00 Iron 114 TIBC 407 % Saturation 28 Ferritin 18.9 Attending/Attestation - Attestation I have personally seen and examined this patient.: Yes I have fully participated in the care of the patient.: Yes I have reviewed all pertinent clinical information: Yes Notes (Text): This is an addendum to GI consult report dictated by the Business Office Technician. The patient was seen and evaluated earlier. Medical records, lab studies, imagings were reviewed. Last 24 hours events reviewed. Agreed with the above treatment plan as outlined in Business Office Technician 's notes with the addition of the following Patient feels better wants to go home Patient was clearly told about the importance of follow-up EGD and colonoscopy to further evaluate Patient fully understood Also discussed with Dr. Weems 05/05/18 23:34
--- NOTE | 2018-05-05 11:29 | CT ---
Date of service: 05/05/2018 PROCEDURE: CT Chest without contrast HISTORY: As ordered by Dr. Thornton COMPARISON: None available. TECHNIQUE: Contiguous axial images were obtained through the chest without intravenous contrast enhancement. Sagittal and coronal reconstructions were performed. Radiation dose: Total exam DLP = 285.73 mGy-cm. This CT exam was performed using one or more of the following dose reduction techniques: Automated exposure control, adjustment of the mA and/or kV according to patient size, and/or use of iterative reconstruction technique. FINDINGS: LUNGS: 4 millimeter juxtapleural nodule likely postinflammatory in the right upper lobe. Recommend 1 year follow-up. MEDIASTINUM: Unremarkable thoracic aorta. No aneurysm. Normal sized heart. Main pulmonary artery unremarkable. No vascular congestion. No lymphadenopathy. No aortic atherosclerotic calcification. PLEURA: No pleural fluid. No pneumothorax. BONES: No fracture. No destructive lesion. UPPER ABDOMEN: Grossly unremarkable. OTHER FINDINGS: None. IMPRESSION: 4 millimeter juxtapleural nodule likely postinflammatory in the right upper lobe. Recommend 1 year follow-up.
[2018-05-05 12:30] LABS: IRON 114 ug/dL (45-180)
[2018-05-05 12:37] LABS: TOTAL IRON BINDING CAPACITY 407 ug/dL (265-497)
[2018-05-05 12:50] LABS: % IRON SATURATION 28 % (20-55)
[2018-05-05] MEDS: Sodium Chloride 0.9% 1,000 ML IV SCH (14:59)
[2018-05-05 15:49] VITALS: BP 139/85; TEMP 98.6; O2SAT 98
--- NOTE | 2018-05-06 01:19 | CON ---
DATE: 05/05/2018 In short, the patient is a 47-year-old female who was admitted on the medical site for evaluation of weakness and dark stool. The patient was admitted on the medical site for further evaluation. Psych consult was called because the patient has history of anxiety and depression. The patient was seen and examined. The patient presented to be alert and pleasant. The patient was observed eating her breakfast, not in acute distress. The patient reported that she has history of depression and anxiety. The patient also reported that she has history of attention deficit disorder for what she is seeing nurse practitioner at [facility], Robe Garcia. The patient reported that she is noncompliant with her stimulants and trazodone because it makes her feel like a zombie. The patient reported that she has intermittent anxiety, which is related to the medical issues what she has. The patient reported that nose bleeding makes her feel very anxious, and if she would be doing fine from the medical standpoint, she would be less anxious and depressed. The patient denied any psychotic symptoms. The patient denied any thoughts of harming herself or others. The patient denied history of being admitted to the psychiatric inpatient unit. The patient denied history of suicidal attempts. The patient denies any drug use. The patient denied smoking. Denied alcohol consumption. PAST MEDICAL HISTORY: Previous history reviewed. The patient has never been admitted to the psychiatric inpatient unit, but was seeing Dr. Zamarripa at [facility]. VITAL SIGNS: Reviewed. Temperature 98.6, pulse is 98, blood pressure 139/85, respirations 26, and oxygen saturation is 98. MEDICATIONS: Reviewed. The patient was on Pepcid, Motrin, and sodium chloride. This marketing underwriter educated the patient about Sonata and about Vistaril as needed for anxiety. Risks, benefits, and alternatives discussed with the patient. The patient agreed to take those medications. LABORATORY DATA: Labs reviewed. Most recent was on 05/04/2018. Toxicology was negative. Urinalysis showed white blood cells 5 to 10 and leukocyte esterase small. MENTAL STATUS EXAMINATION: The patient appears to be alert, oriented, pleasant, cooperative, socially appropriate, fair eye contact. Speech was normal rate, tone, quality, and quantity. Mood described as anxious because of the medical condition. Affect was somewhat expanded. The patient was crying, then was smiling and laughing. Thought process was coherent, goal directed. Thought content, the patient denied visual, auditory, or tactile hallucinations. The patient denied thoughts of harming herself or others. Denied intent or plan. The patient does not present to be psychotic or depressed, mildly anxious. Insight and judgment seems to be fair. Impulses are well controlled. IMPRESSION: Most likely, the patient has mood spectrum disorder. As per the patient, she has a history of attention deficit disorder. The patient is seeing nurse practitioner at [facility]. PLAN: Considering the fact that the patient is not compliant with the medication, trazodone as well as stimulants, this marketing underwriter would suggest Vistaril 50 mg three times a day as needed and Sonata 5 mg as needed for insomnia. The patient posed no imminent danger to self or others. The patient has appointment at [facility]. This marketing underwriter will sign off. Should you have any questions, give me a call back. If the patient will be discharged, only one week supply needs to be provided for the patient with a plan to follow up with outpatient psychiatrist. Thank you very much for letting me participate in the care of your patient. Should you have any questions, call me back. Zeina Mayes MD
--- NOTE | 2018-05-06 19:05 | HP ---
DATE OF EXAM: 05/05/2018 REASON FOR ADMISSION: The patient came in to the ER because of dark stools and seems very anxious about it. HISTORY OF PRESENT ILLNESS: This is a 47-year-old female who has history of anxiety, depression, and had nose bleed earlier, seen in the Emergency Room the day before this admission, complaining of nose bleed. She came into the ER at this time with stool mixed with some blood or dark blood and she got panicking and came to the ER for evaluation. She has no chest pain. Not short of breath. No nausea, vomiting, or diarrhea. Her nose bleed has stopped. No other complaints. The patient had a colonoscopy maybe five years ago or more and EGD by Dr. Jasso in the past and also a CAT scan of the abdomen and pelvis and MRI done before. PAST MEDICAL HISTORY: As I mentioned, anxiety and depression. Also, she has history of gastritis and history of lung nodules may be in 2010. ALLERGIES: NO KNOWN ALLERGIES. SOCIAL HISTORY: No smoking. No drinking. She is active and she lives by herself. FAMILY HISTORY: Brother has a CVA, cerebral bleed. Otherwise, negative. No cancer. REVIEW OF SYSTEMS: Negative except to the nose bleed and anxiety and depression intermittently. The rest of the review of systems are negative. PHYSICAL EXAMINATION: VITAL SIGNS: Her vital signs is as follows, temperature 98.1, heart rate 98, blood pressure 128/77, respiration 20, sat 99% on room air. HEAD AND NECK: Normal. No masses felt. No thyromegaly. CHEST: Clear bilateral. CARDIAC: First sound and second sound normal. No murmur, rub, or gallop. ABDOMEN: Soft and nontender. EXTREMITIES: No edema. NEUROLOGIC: Normal. LABORATORY STUDIES: The patient had iron study which was in normal range and ferritin, which was in normal range. The patient also had previously to this a blood work a day before this admission and was within normal. The patient also had a urine culture, which was negative. She had CBC, which shows white count of 6.8, hemoglobin 15.5, hematocrit 45.2 and platelets 279. Chemistry; sodium 142, potassium 3.7, chloride 106, bicarb 26, BUN 16, creatinine 0.7, blood sugar 132, and calcium 9.8. AST and ALT were normal. Alk phos elevated at 144. The patient also had total protein at 8.5, which is elevated, but also albumin which is 4.9, which is elevated. Her globulin is normal at 3.6. Albumin-globulin ratio is 1.4. TSH is 1.64. The patient also had a chest x-ray, which showed no active disease. She had an electrocardiogram on just the day before admission, which showed at that time sinus tachycardia. Nonspecific T wave abnormalities. QTc is 436 and QT is 306. The patient also at that time of the admission she had a CT abdomen and pelvis, which showed liver with 16 mm and 11 mm masses. IMPRESSION: A 47-year-old female, very anxious, panicky about blood in stool, has a history of gastritis and lung nodules and hepatic masses. We will admit the patient for observations. We will get a Psychiatry consult with Dr. Pastrana and Gastroenterology consult with Dr. Jasso. We will give the patient intravenous fluid, Protonix intravenously and monitor her case and see how she does. We will follow up on a daily basis. ADDENDUM DISCHARGE SUMMARY: Discussed with the patient and reviewed the charts. She did have an MRI, which shows similar lesions of the hepatic liver. She always have alk phos elevated that has been there for years and is within same range. The patient also had a CT of the lung, which shows no nodules except one single nodule of positions and she is not a smoker and she is low risk for cancer and her nodules disappeared, which is granulomatous. It is 4 mm and just a pleural nodule and likely post inflammatory in the right upper lobe. At this time, discussed with the patient. Psychiatry has seen the patient. She does not need to be admitted. She can be released and recommend to continue her medications. She added Sonata for sleep and continue trazodone for ADHD. We will continue if she seems depressed and we will continue the Adderall. She is to follow up for psych consult in [facility] and probably she is stable. She has no chest pain. She ate her breakfast. Discussed with Dr. Jasso that she need an EGD and a colon as outpatient. We will discharge the patient. The patient wants to go home, but we will discharge the patient to follow up in the office within next Tuesday. 1. Post rectal bleeding or lower GI bleeding, likely from epistaxis, digested blood. 2. Lung nodules post inflammatory. 3. Hepatic hemangiomas as per records and discussion with Dr. Jasso. 4. Anxiety and depression. PLAN: Continue Protonix. Continue her previous psych medications and Sonata p.r.n. Gerber Thornton MD
== END 2018-05-05 18:15 | disposition home or self-care (01) ==
LOC: ED 15:33 → ERH 17:54 → 3RNO 22:30
PROVIDERS: ADMIT Internal Medicine; ATTEND Internal Medicine
DX: D18.03 Hemangioma of intra-abdominal structures (principal); K92.1 Melena; F90.9 Attention-deficit hyperactivity disorder, unspecified type; K29.70 Gastritis, unspecified, without bleeding; K29.80 Duodenitis without bleeding; K31.84 Gastroparesis; K57.90 Diverticulosis of intestine, part unspecified, without perforation or abscess without bleeding; F32.89 Other specified depressive episodes; F41.9 Anxiety disorder, unspecified; R04.0 Epistaxis; Z87.891 Personal history of nicotine dependence; Z87.11 Personal history of peptic ulcer disease; Z90.49 Acquired absence of other specified parts of digestive tract; Z91.19 Patient's noncompliance with other medical treatment and regimen; Z82.3 Family history of stroke; Z80.1 Family history of malignant neoplasm of trachea, bronchus and lung
CPT/HCPCS: 36415; 71250; 74177; 81025; 82728; 82784; 83516; 83540; 83550; 96360; 99284; G0378; J7030; Q9967

== ENCOUNTER 2018-05-06 02:42 | Observation (INO) | payer MEDICAID ==
[2018-05-06 02:50] VITALS: BMI 22.3
--- NOTE | 2018-05-06 03:22 | ED PDOC ---
Arrival/HPI - General Chief Complaint: Chest Pain Time Seen by Provider: 05/06/18 02:48 Historian: Patient - History of Present Illness Narrative History of Present Illness (Text): 05/06/18 03:05 47 year old female, whose past medical history includes anxiety, depression, hyperlipidemia, and hypertension, presents to the emergency department for evaluation of chest discomfort for the past couple of days. Patient describes it as a chest heaviness sensation. Patient denies any fever, chills, shortness of breath, nausea, vomiting, diarrhea, urinary symptoms, back pain, neck pain, headache, dizziness, or any other complaints. Symptom Onset: Gradual Symptom Course: Unchanged Activities at Onset: Light Past Medical History - Provider Review Nursing Documentation Reviewed: Yes - Past History Past History: No Previous - Infectious Disease Hx of Infectious Diseases: None - Tetanus Immunization Tetanus Immunization: Unknown - Reproductive Menopause: Yes Currently : No - Cardiac Hx Cardiac Disorders: No - Pulmonary Hx Respiratory Disorders: No - Neurological Hx Neurological Disorder: No - HEENT Hx HEENT Disorder: No - Renal Hx Renal Disorder: No - Endocrine/Metabolic Hx Endocrine Disorders: No - Hematological/Oncological Hx Blood Disorders: No - Integumentary Hx Dermatological Disorder: No - Musculoskeletal/Rheumatological Hx Musculoskeletal Disorders: No Hx Falls: No - Gastrointestinal Hx Gastrointestinal Disorders: Yes - Genitourinary/Gynecological Hx Genitourinary Disorders: No - Psychiatric Hx Psychophysiologic Disorder: Yes Hx Anxiety: Yes Hx Depression: Yes Hx Substance Use: No Other/Comment: ADHD - Surgical History Hx Appendectomy: Yes Other/Comment: tonsillectomy - Anesthesia Hx Anesthesia: Yes Hx Anesthesia Reactions: No Hx Malignant Hyperthermia: No - Suicidal Assessment Feels Threatened In Home Enviroment: No Family/Social History - Physician Review Nursing Documentation Reviewed: Yes Family/Social History: No Known Family HX Smoking Status: Former Smoker Hx Alcohol Use: No Hx Substance Use: No Hx Substance Use Treatment: No Allergies/Home Meds Allergies/Adverse Reactions: Allergies No Known Allergies Allergy (Verified 05/06/18 02:50) Home Medications: Home Meds Medication Instructions Recorded Confirmed RX: Amphetamine Salt Combination 10 mg PO DAILY 08/07/16 05/06/18 [Adderall] Review of Systems - Physician Review All systems were reviewed & negative as marked: Yes - Review of Systems Constitutional: absent: Fevers, Other (chills) Respiratory: absent: SOB Cardiovascular: Chest Pain Gastrointestinal: absent: Diarrhea, Nausea, Vomiting Genitourinary Female: absent: Dysuria, Frequency, Hematuria Musculoskeletal: absent: Back Pain, Neck Pain Neurological: absent: Headache, Dizziness Physical Exam Vital Signs Reviewed: Yes Appearance: Positive for: Well-Appearing, Non-Toxic, Comfortable Pain Distress: None Mental Status: Positive for: Alert and Oriented X 3, other (anxious) - Systems Exam Head: Present: Atraumatic, Normocephalic Pupils: Present: PERRL Extroacular Muscles: Present: EOMI Conjunctiva: Present: Normal Mouth: Present: Moist Mucous Membranes Neck: Present: Normal Range of Motion Respiratory/Chest: Present: Clear to Auscultation, Good Air Exchange. No: Respiratory Distress, Accessory Muscle Use Cardiovascular: Present: Regular Rate and Rhythm, Normal S1, S2. No: Murmurs Abdomen: No: Tenderness, Distention, Peritoneal Signs Back: Present: Normal Inspection Upper Extremity: Present: Normal Inspection. No: Cyanosis, Edema Lower Extremity: Present: Normal Inspection. No: Edema Neurological: Present: GCS=15, CN II-XII Intact, Speech Normal Skin: Present: Warm, Dry, Normal Color. No: Rashes Psychiatric: Present: Alert, Oriented x 3, Normal Insight, Normal Concentration, Anxious Medical Decision Making ED Course and Treatment: 05/06/18 03:10 Impression: 47 year old female presents complaining of chest heaviness for the past couple of days. Plan: -- EKG -- Labs -- CXR -- Reassess and disposition Prior Visits: Notes and results from previous visits were reviewed. Progress Notes: EKG shows sinus tachycardia at 101 BPM with t-wave inversions lead III. Interpreted by me. 05/06/18 04:20 CXR Impression: As read by me, no acute process. 05/06/18 04:[address] Thornton who is aware and agrees with the plan. Accepts patient into his service. 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 I have reviewed the chart and agree that the record accurately reflects my personal performance of the history, physical exam, medical decision making, and the department course for this patient. I have also personally directed, reviewed, and agree with the discharge instructions and disposition. Disposition/Present on Arrival - Present on Arrival Any Indicators Present on Arrival: No History of DVT/PE: No History of Uncontrolled Diabetes: No Urinary Catheter: No History of Decub. Ulcer: No History Surgical Site Infection Following: None - Disposition Have Diagnosis and Disposition been Completed?: Yes Diagnosis: Chest pain, Anxiety Disposition: HOSPITALIZED Disposition Time: 04:41 Patient Plan: Observation Patient Problems: Current Active Problems Problem Status Onset Anxiety Acute Chest pain Acute Condition: STABLE
[2018-05-06 04:14] LABS: HEMOGLOBIN 15.8 g/dL (12.0-16.0); MEAN CELL VOLUME 86.8 fl (80.0-105.0); MEAN CORPUSCULAR HEMOGLOBIN 30.3 pg (25.0-35.0); MEAN PLATELET VOLUME 10.1 fl (7.0-11.0); RBC 5.21 10^6/uL (3.5-6.1); RED CELL DISTRIBUTION WIDTH 12.3 % (11.5-14.5); WHITE BLOOD COUNT 11.3 10^3/uL (4.5-11.0)
[2018-05-06 04:18] LABS: INR 1.09; PARTIAL THROMBOPLASTIN TIME 38.1 Seconds (26.9-38.3); PROTHROMBIN TIME 12.1 SECONDS (9.4-12.5)
[2018-05-06 04:38] LABS: ALB/GLOB RATIO 1.4 (1.1-1.8); ALBUMIN 5.2 g/dL (3.0-4.8); ALT/SGPT 28 U/L (7-56); AST/SGOT 46 U/L (14-36); BLOOD UREA NITROGEN 18 mg/dL (7-21); CALCIUM 10.4 mg/dL (8.4-10.5); GFR NON-AFRICAN AMERICAN > 60; TROPONIN I < 0.01 ng/mL
--- NOTE | 2018-05-06 10:36 | RAD ---
Date of service: 05/06/2018 HISTORY: chest pain COMPARISON: Comparison chest 05/04/2018 FINDINGS: LUNGS: No active pulmonary disease. PLEURA: No significant pleural effusion identified, no pneumothorax apparent. CARDIOVASCULAR: No aortic atherosclerotic calcification present. Normal cardiac size. No pulmonary vascular congestion. OSSEOUS STRUCTURES: No significant abnormalities. VISUALIZED UPPER ABDOMEN: Normal. OTHER FINDINGS: None. IMPRESSION: No active disease.
[2018-05-06] MEDS ORDERED: Influenza Vaccine 60 mcg/0.5 mL SYR (4YR UP) IM ONE (15:47)
[2018-05-06] MEDS ORDERED: Pneumococcal 23-Valent Vaccine IM ONE (15:47)
--- NOTE | 2018-05-06 21:26 | CARD ---
APPROVED REPORT Date of service: 05/06/2018 EKG Measurement Heart [id number] <Conclusion> Sinus tachycardia Possible Left atrial enlargement Borderline ECG
--- NOTE | 2018-05-06 21:26 | CARD ---
APPROVED REPORT Date of service: 05/06/2018 EKG Measurement Heart [id number] OH 96P [id number] <Conclusion> Sinus tachycardia with short OH Septal infarct, age undetermined Abnormal ECG
--- NOTE | 2018-05-06 23:35 | CON ---
DATE: 05/06/2018 CARDIOLOGY CONSULTATION (Cardiology consultation for Dr. Naidu). HISTORY: The patient is a 47-year-old woman with a history of borderline diabetes mellitus and anxiety who presents with chest pain. These symptoms are atypical in nature. She denies hypertension or taking medications for diabetes. SOCIAL HISTORY: Reviewed in detail. REVIEW OF SYSTEMS: Reviewed in detail. PHYSICAL EXAMINATION: VITAL SIGNS: Stable. NECK: Negative JVD. LUNGS: Without rales. HEART: S1 and S2. EXTREMITIES: Without edema. LABORATORY DATA: EKG, normal sinus rhythm with no acute changes. Troponins are negative so far. IMPRESSION: 1. Chest pain. 2. Anxiety. 3. Borderline diabetes mellitus. 4. No evidence for acute coronary syndrome so far. Given these findings, we will obtain serial troponins. We will obtain an echocardiogram. We will refer the case back to Dr. Naidu on Tuesday morning. Pola Irwin MD
--- NOTE | 2018-05-07 00:26 | HP ---
DATE OF EXAM: 05/06/2018 MAIN COMPLAINT: Chest pain. HISTORY OF PRESENT ILLNESS: This is a 47-year-old female who was recently discharged from the hospital due to blood in the stool and panic attack, came in to the hospital overnight because of chest pain. According to the patient, she was sitting, she got up, she felt lightheaded, dizzy, and followed by sweating and felt nauseous and have some upper chest discomfort after that. She felt also palpitation after that. The patient called the ambulance and they brought her here. She felt also dizzy, almost fell down on her way coming here. When she came here, she seems okay. The patient had recent EKG, which shows nonspecific ST changes, T-wave changes, but there is not any history of cardiac events in the past or cardiac disease. She also does not smoke and does not have high blood pressure. The patient seems very anxious. She has chest pain in upper chest to her neck area. [place] nauseous. Because of the associated symptoms, we will admit the patient for observation. PAST MEDICAL HISTORY: The patient does have a history of gastritis. She also has a history of liver lesions, hemangiomas, also panic attacks, depression, anxiety, and ADHD. HOME MEDICATIONS: She takes baby aspirin, trazodone 100 mg daily, Vistaril 50 every 8 hours, Sonata 5 mg at bedtime, Prilosec 20, and Adderall 10 mg p.o. daily. ALLERGIES: NO KNOWN ALLERGIES. SOCIAL HISTORY: She is not smoking. No drinking. No kids. FAMILY HISTORY: Brother has stroke. REVIEW OF SYSTEMS: As in the above history of present illness. She did have rectal bleeding recently and epistaxis recently, which resolved. She gets panic attack, anxiety, insomnia, and also she feel weak. PHYSICAL EXAMINATION: GENERAL: The patient is seen in emergency room, seems comfortable. Does not seem to be in any distress. VITAL SIGNS: Her heart rate was less than 100, when I wake her up, her heart rate went up to 139 and start going down while I am talking to her. She is afebrile. Temperature 98.8, heart rate 107, blood pressure is 112/75, respirations 20, and saturating 99% on room air. HEAD AND NECK: Normal. No JVD. No thyromegaly. CHEST: Clear bilaterally. CARDIAC: First sound and second sounds normal. No murmur, rub, or gallop. ABDOMEN: Soft and nontender. EXTREMITIES: No edema. NEUROLOGIC: Normal. LABORATORY DATA: CBC shows white count 11.3, hemoglobin 15.8, hematocrit 45.2, and platelets 311. Chemistry; sodium 138, potassium 3.8, chloride 101, bicarb 23, BUN 18, creatinine 0.7, sugar 119, and calcium 10.4. AST at this time a little bit elevated, ALT is normal, and alkaline phos 165. Lactate dehydrogenase 754. Troponin is negative. PT and PTT was normal and d-dimer was less than 200 negative. Also, the patient has chest x-ray was negative and EKG shows sinus tachycardia, left atrial enlargement, and borderline EKG. IMPRESSION AND PLAN: 1. A 47-year-old female who came in with chest pain with possible panic attack, some electrocardiogram sinus tachycardia. We will admit the patient, get Cardiology consult Dr. Naidu for possible chest pain, possible acute myocardial ischemia. We will give baby aspirin. Cardiology consult. 2. Anxiety and panic attack. We will give her Klonopin. 3. The patient also have lung nodules, get the Pulmonary look at these and see how she do. The patient also need a psychiatric evaluation. She always worry about herself and will see how she do it. At this time, we will continue current therapy, probably consider cardiac stress test for her and we will follow up clinically. Gerber Thornton MD
--- NOTE | 2018-05-07 01:44 | CON ---
DATE OF CONSULTATION: 05/06/2018 REFERRING PHYSICIAN: Penelope Sanat MD REASON FOR CONSULTATION: Daytime sleepy and tired. Does not feel well. Had nonspecific chest discomfort. HISTORY OF PRESENT ILLNESS: This is a 47-year-old female without any significant past medical history other than seen by Psychiatry and being treated for ADDH. She is supposed to be on Advil, which she is not taking. She comes in with nonspecific chest discomfort, mild sore throat, could not sleep well, daytime sleepy and tired. No nausea, no vomiting, no diarrhea, no leg pain or leg swelling. PAST MEDICAL HISTORY: ADDH. FAMILY HISTORY: No significant cardiopulmonary disease reported. SOCIAL HISTORY: Stopped smoking many years ago. Nondrinker. MEDICATIONS: She is supposed to be on Advil as the outpatient. Presently, she is on trazodone 50 mg h.s., Ecotrin 81 mg daily, Klonopin 0.5 mg twice a day, Protonix 40 mg daily, Sonata 5 mg h.s., Tylenol p.r.n. basis. ALLERGIES: NONE KNOWN. REVIEW OF SYSTEMS: No headache. No much rhinitis. Mild sore throat, daytime sleepy and tired. Multiple night awakening. No abdominal pain, no nausea, no leg pain, no leg swelling. PHYSICAL EXAMINATION: GENERAL: No acute distress. VITAL SIGNS: Temperature is 98, heart rate is 95, respiratory rate is 16, blood pressure 118/76, pulse ox 97% on room air. HEENT: Moist mucous membranes. Crowded airway. Mallampati score is 4. NECK: Supple. No JVD. LUNGS: Have fair airflow, rhonchi. HEAT: S1 and S2. ABDOMEN: Soft, nontender, no organomegaly. EXTREMITIES: No edema. NEUROLOGICAL: Awake, alert and follows simple commands. LABORATORY DATA: Hemoglobin 15.8, hematocrit 45.2, WBC 11.3, platelets 311,000. INR 1.09. PTT 38. D-dimer less than 200. Sodium 138, potassium 3.8, chloride 101, bicarbonate 23, BUN 18, creatinine 0.7, glucose 119, calcium 10.4, total bili 0.7, AST 46, ALT 28, alk phos is 165. Troponin less than 0.01. Chest x-ray: There is no infiltrate or effusion. IMPRESSION AND PLAN: Anxiety disorder, carried diagnosis attention deficit disorder with hyperactivity, rule out sleep apnea syndrome, also has insomnia. Agree with the present treatment. We will order vitamin D, thyroid profile, cortisol level. Continue gastric prophylaxis, DVT prophylaxis, recent test. Thank you and we will follow with you. Robert Liang MD
[2018-05-07 08:40] LABS: FREE T4 1.28 ng/dL (0.78-2.19)
[2018-05-07] MEDS: Pantoprazole 40 mg EC Tab PO SCH (10:54)
--- NOTE | 2018-05-07 18:00 | PN ---
DATE: 05/07/2018 PULMONARY PROGRESS NOTE REFERRING PHYSICIAN: Dr. Gerber Thornton. SUBJECTIVE: The patient is lying in the bed. Head at 45 degree. Night was unremarkable. No headache. No rhinitis. No nausea. No vomiting. No diarrhea. Leg pain or leg swelling. Had blood-tinge stool today. OBJECTIVE: GENERAL: No acute distress. VITAL SIGNS: Temperature is 98, heart rate is 91, respiratory rate 18, blood pressure 121/83, pulse oximetry 100% on room air. HEENT: Moist mucous membrane. Crowded airway. NECK: Supple. No JVD. LUNGS: Have a fair airflow with rhonchi. HEART: S1 and S2. ABDOMEN: Soft and nontender. No organomegaly. EXTREMITIES: No edema. NEUROLOGIC: Awake and alert. Follows simple command. MEDICATIONS: She is on Colace 100 mg twice a day, trazodone 50 mg at bedtime, Ecotrin 81 mg daily, Klonopin 0.5 mg twice a day, MiraLax 17 g daily, Protonix 40 mg a.c., Sonata 5 mg at bedtime, Tylenol p.r.n. basis. LABORATORY DATA: Reviewed and noted, vitamin D is 43, TSH 2.12, cortisone level 7.84, T4 free is 1.28. Had a CAT scan of the chest done in April of this year shows most of the nodules are going except 4 mm nodule. IMPRESSION AND PLAN: Anxiety disorder, attention deficit hyperactivity disorder, sleep apnea syndrome, lung nodule, gastrointestinal bleed. Case discussed with Dr. Thornton in detail. According to him, he had a previous CAT scan in multiple small nodule which mostly disappear except 4 mm nodule still there, need followup CT to show the stability of the nodule. The patient understand the importance of followup CT for lung nodule. Continue gastric and deep venous thrombosis prophylaxis. The patient will be seen by Cardiology as well as . Case discussed with Dr. Thornton. Thank you and we will follow with you. Robert Liang MD
--- NOTE | 2018-05-07 22:13 | PN ---
DATE: 05/07/2018 SUBJECTIVE: Dr. Liang seen the patient also. The patient is very anxious. She is worried about her condition; however, she did complain only of bright blood while she move her bowels. She denied any nausea. She was eating lunch and has no problem. No nausea or vomiting and seems respiratory bates she is comfortable. No chest pain. PHYSICAL EXAMINATION: VITAL SIGNS: Temperature 97.6, heart rate 75, blood pressure 121/83, respirations 18, sat 100%. HEAD AND NECK: Normal. No JVD. No thyromegaly. CHEST: Clear bilaterally. CARDIAC: First sound and second sounds are normal. ABDOMEN: Soft, nontender. EXTREMITIES: No edema. NEUROLOGIC: Normal. LABORATORY DATA: No change. Her TSH is normal. Her vitamin D level is normal. Cortisol level also is normal. IMPRESSION AND PLAN: 1. Rectal bleeding. We will get gastrointestinal evaluation again. 2. Chest pain, dyspnea. Pulmonary and cardiac consult. The patient seems has negative D-dimer, negative troponin. We will get the Cardiology to see before any endoscopic procedures. 3. History of lung nodules, liver hemangiomas, no change. 4. Anxiety, panic attacks. We will get the Psych consult to see her again. The patient need more attention because she keep coming to the hospital with panic and anxiety. We will discuss with the psychiatrist. Plan is continue current therapy. Continue Colace, trazodone, we will increase it to 100. Continue baby aspirin 81, Klonopin 0.5 mg b.i.d., MiraLax b.i.d., Protonix 40 once a day, Sonata 5 mg at bedtime, Tylenol p.r.n. Continue current therapy. Gerber Thornton MD
[2018-05-08] MEDS ORDERED: Peg-Electrolyte Oral Soln 4L (Golytely) PO ONE (09:04)
[2018-05-08] MEDS ORDERED: Bisacodyl 5mg EC Tab PO ONE (09:14)
[2018-05-08] MEDS: POLYETHYLENE GLYCOL 3350 17 GM/Dose PACKET PO SCH (10:10)
[2018-05-08] MEDS: Pantoprazole 40 mg EC Tab PO SCH (10:11)
[2018-05-08 11:52] LABS: ALB/GLOB RATIO 1.4 (1.1-1.8); ALBUMIN 4.5 g/dL (3.0-4.8); ALT/SGPT 16 U/L (7-56); AST/SGOT 24 U/L (14-36); BLOOD UREA NITROGEN 15 mg/dL (7-21); CALCIUM 9.7 mg/dL (8.4-10.5); GFR NON-AFRICAN AMERICAN > 60
[2018-05-08 11:55] LABS: HEMOGLOBIN 15.2 g/dL (12.0-16.0); MEAN CELL VOLUME 88.5 fl (80.0-105.0); MEAN CORPUSCULAR HEMOGLOBIN 29.7 pg (25.0-35.0); MEAN CORPUSCULAR HGB CONC 33.6 g/dl (31.0-37.0); MEAN PLATELET VOLUME 9.9 fl (7.0-11.0); RBC 5.12 10^6/uL (3.5-6.1); RED CELL DISTRIBUTION WIDTH 12.5 % (11.5-14.5); WHITE BLOOD COUNT 7.3 10^3/uL (4.5-11.0)
--- NOTE | 2018-05-08 14:30 | CP.PCM.CON ---
History of Present Illness - History of Present Illness History of Present Illness: GI Consult Note for Dr. Jasso Reason for Consultation: GI bleed Patient is a 47 yo F with PMH of anxiety/depression and ADD was recently admitted due to epistaxis, melanotic stools, BRBPR, and liver lesions found on CT. The liver lesions were determined to be chronic hemangiomas when compared to prior MRI. Patient was subsequently discharged home as she was hemodynamically stable with a normal hemoglobin count. Patient returned to [facility] ED complaining of continued BRBPR and fatigue/weakness. Patient denies of abdominal pain, fever, chills, skin color change, CP, SOB, n/v/d, dysuria, NUGENT, or dizziness. Patient states that she had an EGD and colonoscopy about 7 years ago at [facility] due to abdominal pain and distention, which showed duodenitis, gastritis, and diverticulosis was found at that time. PMH: Anxiety/depression, ADD Surg: Tonsillectomy All: NKDA SH: Denied tobacco, EtOH, and illicit drug use FHx: Lung CA (mother) Medications: Adderall and Trazodone (admits to intermittent use of both) Review of Systems - Review of Systems All systems: reviewed and no additional remarkable complaints except (12 point ROS reviewed and is negative other than what is stated in HPI.) Past Patient History - Infectious Disease Hx of Infectious Diseases: None - Tetanus Immunizations Tetanus Immunization: Unknown - Past Social History Smoking Status: Former Smoker - CARDIAC Hx Cardiac Disorders: Yes Hx Hypercholesterolemia: Yes - PULMONARY Hx Respiratory Disorders: Yes (SMOKED CIGARETTES PPD .QUIT 20 YRS AGO.) - NEUROLOGICAL Hx Neurological Disorder: No - HEENT Hx HEENT Problems: No - RENAL Hx Chronic Kidney Disease: No - ENDOCRINE/METABOLIC Hx Endocrine Disorders: No - HEMATOLOGICAL/ONCOLOGICAL Hx Blood Disorders: No - INTEGUMENTARY Hx Dermatological Problems: No - MUSCULOSKELETAL/RHEUMATOLOGICAL Hx Musculoskeletal Disorders: No Hx Falls: No - GASTROINTESTINAL Hx Gastrointestinal Disorders: Yes (CONSTIPATION) Hx Gastroesophageal Reflux: Yes - GENITOURINARY/GYNECOLOGICAL Hx Genitourinary Disorders: Yes (ENDOMETRIOSIS) - PSYCHIATRIC Hx Psychophysiologic Disorder: Yes (INSOMNIA) Hx Anxiety: Yes Hx Depression: Yes Hx Substance Use: No Other/Comment: ADHD - SURGICAL HISTORY Hx Surgeries: Yes Hx Appendectomy: Yes Other/Comment: tonsillectomy - ANESTHESIA Hx Anesthesia: Yes Hx Anesthesia Reactions: No Hx Malignant Hyperthermia: No Meds Allergies/Adverse Reactions: Allergies Allergy/AdvReac Type Severity Reaction Status Date / Time No Known Allergies Allergy Verified 05/06/18 15:22 - Medications Medications: Current Medications Acetaminophen (Tylenol 325mg Tab) 650 mg PO Q6H PRN PRN Reason: Fever >100.4 F Last Admin: 05/06/18 18:27 Dose: 650 mg Clonazepam (Klonopin) 0.5 mg PO BID [facility]; Protocol Last Admin: 05/08/18 10:11 Dose: 0.5 mg Docusate Sodium (Colace) 100 mg PO BID [facility] Last Admin: 05/08/18 10:11 Dose: 100 mg Pantoprazole Sodium (Protonix Ec Tab) 40 mg PO ACB [facility] Last Admin: 05/08/18 10:11 Dose: 40 mg Polyethylene Glycol (Miralax) 17 gm PO DAILY [facility] Last Admin: 05/08/18 10:10 Dose: 17 gm Trazodone HCl (Desyrel) 50 mg PO HS [facility] Last Admin: 05/07/18 21:20 Dose: 50 mg Zaleplon (Sonata) 5 mg PO HS [facility] Last Admin: 05/07/18 21:21 Dose: 5 mg Physical Exam - Head Exam Head Exam: NORMAL INSPECTION - Eye Exam Eye Exam: Normal appearance Pupil Exam: NORMAL ACCOMODATION - ENT Exam ENT Exam: Mucous Membranes Moist - Neck Exam Neck exam: Positive for: Normal Inspection - Respiratory Exam Respiratory Exam: Clear to Auscultation Bilateral. absent: Rales, Rhonchi, Wheezes - Cardiovascular Exam Cardiovascular Exam: Tachycardia, +S1, +S2. absent: Diastolic murmur, Gallop, Rubs, Systolic Murmur - GI/Abdominal Exam GI & Abdominal Exam: Soft. absent: Distended, Guarding, Rebound, Tenderness - Neurological Exam Neurological exam: Alert, Oriented x3 - Skin Skin Exam: Normal Color, Warm Results - Vital Signs Recent Vital Signs: Last Vital Signs Temp 97.8 F 05/08/18 08:57 Pulse 85 05/08/18 08:57 Resp 18 05/08/18 08:57 BP 106/63 05/08/18 08:57 Pulse Ox 100 05/08/18 08:57 - Labs Result Diagrams: 05/08/18 11:20 05/08/18 11:20 Labs: Laboratory Results - last 24 hr 05/07/18 05/08/18 05/08/18 14:32 11:20 11:20 WBC 7.3 D RBC 5.12 Hgb 15.2 Hct 45.3 MCV 88.5 MCH 29.7 MCHC 33.6 RDW 12.5 Plt Count 288 MPV 9.9 Sodium 141 Potassium 4.1 Chloride 109 H Carbon Dioxide 24 Anion Gap 13 BUN 15 Creatinine 0.7 Est GFR ( Amer) > 60 Est GFR (Non-Af Amer) > 60 Random Glucose 100 Calcium 9.7 Total Bilirubin 0.6 AST 24 ALT 16 Alkaline Phosphatase 119 Total Protein 7.6 Albumin 4.5 Globulin 3.1 Albumin/Globulin Ratio 1.4 Urine HCG, Qual Negative Assessment & Plan - Assessment and Plan (Free Text) Assessment: 47 yo F with PMH of ADD and anxiety/depression admitted to [facility] due BRBPR. 1. Possible GI bleed 2. Gastroparesis Plan: - Plan for EGD/colonoscopy today - Bowel prep: Golytely, dulcolax - NPO - Cont PPI - Prior labs reviewed: Hgb stable, TSH normal, iron studies normal - Celiac Profile pending - International Travel Consultant referal for gastroparesis Patient seen and discussed in detail with Dr. Jasso. Morgan Hunt DO PGY2
--- NOTE | 2018-05-08 14:46 | PN ---
DATE: 05/08/2018 LOCATION: The patient is in room 368, bed 2. REASON FOR CONSULTATION: Chest pain, anxiety, and borderline diabetes. BRIEF HISTORY: The patient is a 47-year-old female admitted with borderline diabetes mellitus, anxiety, and she also complains of chest pain, which is going on from last several months, continuous pain day and night. No relation with exertion. The patient now lying flat in bed without any respiratory distress or palpitation. PHYSICAL EXAMINATION: VITAL SIGNS: Blood pressure 106/63, respirations 18, pulse 85, and temperature 97.8. HEENT: Head is normocephalic. Eyes; pupils normal. Conjunctivae normal. Nose and throat normal. NECK: JVP low. Carotids equal. THORAX: AP diameter normal. LUNGS: Clear. CARDIOVASCULAR: S1 and S2. ABDOMEN: Soft and nontender. No organomegaly. Bowel sounds normal. EXTREMITIES: No clubbing. No cyanosis. LABORATORY DATA: WBC 7.3, hemoglobin 15.2, hematocrit 45.3, and platelets 288. Sodium 141, potassium 4.1, BUN 15, and creatinine 0.7. AST and ALT normal. TSH is normal. Troponin is less than 0.01. Chest x-ray, no active disease. EKG showed sinus tachycardia, 101 per minute, possible left atrial enlargement. DIAGNOSES: Atypical chest pain, anxiety, borderline diabetes mellitus, and the patient found to have some blood in the stool. PLAN: The patient's chest pain is atypical and the patient is scheduled for colonoscopy today, so the patient's chest pain is atypical, so from cardiac point of view, the patient can go for colonoscopy. The patient is already getting Desyrel 50 mg at bedtime, Klonopin 0.5 mg two times a day, Protonix 40 mg daily, and Sonata 5 mg p.o. at bedtime. We will continue present therapy and we will follow with you. We will check lipid profile. Robert Reich MD
--- NOTE | 2018-05-08 14:56 | PN ---
DATE: 05/08/2018 PULMONARY PROGRESS NOTE REFERRING PHYSICIAN: Gerber Thornton MD SUBJECTIVE: The patient is seen sitting up in bed. No acute distress. Presently being prepped for colonoscopy. No headache, rhinitis, cough, shortness of breath, chest pain, abdominal pain, nausea, vomiting, leg pain, leg swelling. The patient with frequent bowel movements due to colonoscopy prep. OBJECTIVE: GENERAL: No acute distress. VITAL SIGNS: Blood pressure 106/63, pulse 85, temperature 97.8, oxygen saturation 100% on room air. HEENT: Moist mucous membranes. Crowded airway. NECK: Supple. No JVD. LUNGS: Fair airflow bilaterally. CARDIOVASCULAR: S1 and S2 audible. ABDOMEN: Soft, nontender. No distention. No organomegaly. EXTREMITIES: No bilateral lower extremity edema. NEUROLOGICAL: Awake, alert and verbal. Follows commands. MEDICATIONS: Reviewed. Tylenol 650 every 6 hours p.r.n. fever greater than 100.4, Klonopin 0.5 mg twice a day, Colace 100 mg twice a day, Protonix 40 mg daily, MiraLax 17 g daily, trazodone 50 mg at bedtime, Sonata 5 mg at bedtime. LABORATORY DATA: Reviewed. WBC 7.3, RBC 5.12, hemoglobin 15.2, hematocrit 45.3, platelets 288. Sodium 141, potassium 4.1, chloride 109, carbon dioxide 24, anion gap 13, BUN 15, creatinine 0.7. GFR greater than 60. Random glucose 100, calcium 9.7. Total bilirubin 0.6. AST 24, ALT 16, alkaline phosphatase 119, total protein 7.6, albumin is 4.5, globulin 3.1, albumin-globulin ratio 1.4. Urine hCG negative. IMPRESSION AND PLAN: Anxiety disorder, attention deficit hyperactivity disorder, sleep apnea syndrome, lung nodule, gastrointestinal bleed. The patient is scheduled for colonoscopy today. The patient will need followup CT scan of the chest to follow up on the stability of lung nodule, gastric prophylaxis, will need sleep study as outpatient. This patient was seen and examined with Dr. Liang. Discussed assessment and plan as described above. Thank you for this consult. We will follow with you. This patient was seen and examined with Sonia Hernandez, nurse practitioner. Discussed assessment and plan as described above. David Scott APN Robert Liang MD [facility] # [id number]
[2018-05-08] MEDS ORDERED: Midazolam 2 MG/2 ML VIAL ONE (17:23)
[2018-05-08] MEDS ORDERED: Propofol 10 mg/ml Inj (20 ML) ONE (17:38)
[2018-05-08] MEDS ORDERED: Sodium Chloride 0.9% 1,000 ML IV SCH (18:00)
[2018-05-09 07:28] LABS: HDL CHOLESTEROL 39 mg/dL (29-60)
[2018-05-09 07:39] LABS: LDL CHOLESTEROL 106 mg/dL (0-129)
[2018-05-09 08:10] VITALS: RESP 19
[2018-05-09] MEDS: POLYETHYLENE GLYCOL 3350 17 GM/Dose PACKET PO SCH (10:44)
[2018-05-09] MEDS: Pantoprazole 40 mg EC Tab PO SCH (10:44)
--- NOTE | 2018-05-09 11:08 | PN ---
DATE: 05/09/2018 PULMONARY PROGRESS NOTE REFERRING PHYSICIAN: Gerber Thornton MD SUBJECTIVE: The patient is lying in bed. No acute distress. Reports feeling well this morning. No headache, rhinitis, cough, shortness of breath, chest pain, abdominal pain, nausea, vomiting, diarrhea, leg pain or leg swelling reported. OBJECTIVE: GENERAL: No acute distress. VITAL SIGNS: Blood pressure 103/67, pulse 77, temperature 98, oxygen saturation 97% on room air. HEENT: Moist mucous membranes. Crowded airway. NECK: Supple. No JVD. LUNGS: Fair airflow bilaterally. CARDIOVASCULAR: S1 and S2 audible. ABDOMEN: Soft and nontender. No distention. No organomegaly. EXTREMITIES: No bilateral lower extremity edema. NEUROLOGICAL: Awake, alert and verbal. Follows commands. MEDICATIONS: Reviewed. Tylenol 650 mg every 6 hours p.r.n. fever greater than 100.4, Klonopin 0.5 mg twice a day, Colace 100 mg twice a day, Protonix 40 mg in the morning, MiraLax 17 g daily, trazodone 50 mg at bedtime, Sonata 5 mg at bedtime. LABORATORY DATA: Reviewed. Triglycerides 112, cholesterol 163, LDL cholesterol 106, HDL cholesterol 39. IMPRESSION AND PLAN: Anxiety disorder, attention deficit hyperactivity disorder, sleep apnea syndrome, lung nodule, gastrointestinal bleed. The patient is status post colonoscopy. Continue gastrointestinal followup. The patient will need followup CT scan to show stability of nodule, this was discussed with the patient and the patient verbalized understanding of the importance of getting a followup CT scan full lung nodule. Continue gastric prophylaxis. Patient is stable from pulmonary point of view for discharge. The patient will need home sleep study as outpatient and follow up CT scan as outpatient. This patient was seen and examined with Dr. Liang. Discussed assessment and plan as described above. This patient was seen and examined with Sonia Hernandez, nurse practitioner. Discussed assessment and plan as described above. Thank you for this consult. We will follow with you. David Scott APN Robert Liang MD [facility] # [id number] [facility]
--- NOTE | 2018-05-09 11:35 | CP.PCM.PN ---
<MarileeCelestine - Last Filed: 05/09/18 11:31> Subjective - Date & Time of Evaluation Date of Evaluation: 05/09/18 Time of Evaluation: 11:31 - Subjective Subjective: GI Progress Note for Dr. Jasso Patient seen and examined at bedside. No acute overnight events. Patient offers no complaints at this time. Patient denies CP, SOB, n/v/d, abdominal pain, fever, chills, NUGENT, or dizziness. Objective - Vital Signs/Intake and Output Vital Signs (last 24 hours): Temp Pulse Resp BP Pulse Ox 98 F 77 19 103/67 97 05/09/18 08:10 05/09/18 08:10 05/09/18 08:10 05/09/18 08:10 05/09/18 08:10 - Medications Medications: Current Medications Acetaminophen (Tylenol 325mg Tab) 650 mg PO Q6H PRN PRN Reason: Fever >100.4 F Last Admin: 05/06/18 18:27 Dose: 650 mg Clonazepam (Klonopin) 0.5 mg PO BID [facility]; Protocol Last Admin: 05/09/18 10:44 Dose: 0.5 mg Docusate Sodium (Colace) 100 mg PO BID [facility] Last Admin: 05/09/18 10:44 Dose: 100 mg Pantoprazole Sodium (Protonix Ec Tab) 40 mg PO ACB [facility] Last Admin: 05/09/18 10:44 Dose: 40 mg Polyethylene Glycol (Miralax) 17 gm PO DAILY [facility] Last Admin: 05/09/18 10:44 Dose: 17 gm Trazodone HCl (Desyrel) 50 mg PO HS [facility] Last Admin: 05/08/18 22:26 Dose: 50 mg Zaleplon (Sonata) 5 mg PO HS [facility] Last Admin: 05/08/18 22:26 Dose: 5 mg - Labs Labs: 05/08/18 11:20 05/08/18 11:20 PT 12.1 SECONDS (9.4-12.5) 05/06/18 03:53 INR 1.09 05/06/18 03:53 APTT 38.1 Seconds (26.9-38.3) 05/06/18 03:53 - Constitutional Appears: No Acute Distress - Head Exam Head Exam: NORMAL INSPECTION - Eye Exam Eye Exam: Normal appearance - ENT Exam ENT Exam: Normal Exam - Neck Exam Neck Exam: Normal Inspection - Respiratory Exam Respiratory Exam: Clear to Ausculation Bilateral. absent: Rales, Rhonchi, Wheezes - Cardiovascular Exam Cardiovascular Exam: REGULAR RHYTHM - GI/Abdominal Exam GI & Abdominal Exam: Soft, Normal Bowel Sounds. absent: Distended, Guarding, Tenderness, Rebound - Extremities Exam Extremities Exam: Normal Inspection - Back Exam Back Exam: NORMAL INSPECTION - Neurological Exam Neurological Exam: Alert, Awake, Oriented x3 - Skin Skin Exam: Normal Color, Warm Assessment and Plan - Assessment and Plan (Free Text) Assessment: 47 yo F with PMH of ADD and anxiety/depression admitted to [facility] due BRBPR. 1. Possible GI bleed 2. Gastroparesis 3. Liver lesions Plan: - EGD/colonoscopy revealed gastritis and redundant colon - Follow up biopsies - MRCP/MRI ordered to evaluate liver lesions - Cont PPI - Prior labs reviewed: Hgb stable, TSH normal, iron studies normal - Celiac Profile pending - Photographer Apprentice referral for gastroparesis Patient seen and discussed in detail with Dr. Jasso. Morgan Hunt DO PGY2 <Debbie Jasso V - Last Filed: 05/09/18 23:28> Objective - Vital Signs/Intake and Output Vital Signs (last 24 hours): Temp Pulse Resp BP Pulse Ox 98.3 F 76 19 107/65 99 05/09/18 16:51 05/09/18 16:51 05/09/18 16:51 05/09/18 16:51 05/09/18 16:51 - Labs Labs: 05/08/18 11:20 05/08/18 11:20 PT 12.1 SECONDS (9.4-12.5) 05/06/18 03:53 INR 1.09 05/06/18 03:53 APTT 38.1 Seconds (26.9-38.3) 05/06/18 03:53 Attending/Attestation - Attestation I have personally seen and examined this patient.: Yes I have fully participated in the care of the patient.: Yes I have reviewed all pertinent clinical information, including history, physical exam and plan: Yes Notes (Text): This is an addendum to GI consult report dictated by the GI Fellow.The patient was seen and examined earlier. Medical records, lab studies, imagings were reviewed. Last 24 hours events reviewed. Agreed with the above treatment plan as outlined in GI Fellow 's notes with the addition of the following The reason for fluctuating alkaline phosphatase unclear I did discuss with Dr. Thornton at length earlier MRI/MRCP report was not available Patient was advised to follow-up with the replenisher as per your plan Patient was advised to follow up with their Dr. Thornton Follow-up of the vitamin D levels and pathology report 05/09/18 23:26
--- NOTE | 2018-05-09 12:40 | PN ---
DATE: 05/08/2018 SUBJECTIVE: The patient is stable. She is kept n.p.o. for colonoscopy. She has no other complaint. The patient is cleared by golf club manager. PHYSICAL EXAMINATION VITAL SIGNS: Temperature 98.2, heart rate 83, blood pressure 131/75, respirations 16 and sat 100% on 2 liters. HEAD AND NECK: Normal. No JVD. No thyromegaly. CHEST: Clear bilateral. CARDIAC: First sound and second sounds are normal. ABDOMEN: Soft and nontender. EXTREMITIES: No edema. NEUROLOGICAL: Normal. LABORATORY DATA: White count 7.3, hemoglobin 15.2, hematocrit 45.3 and platelets 288. Chemistry; sodium 141, potassium 4.1, chloride 109, bicarb 24, BUN 15 and creatinine 0.7. Liver function test is normal. Cholesterol is 163 and LDL 106. She had normal T6. IMPRESSION AND PLAN: 1. Rectal bleeding. According to her, she saw blood in stool, colonoscopy was negative. Discussed with Dr. Jasso after performing colonoscopy and suggested vitamin D level for high alk phos. He is going to do some MRCP and MRI of liver plus Crohn's disease protocol serology test. We will continue to follow after that. 2. Chest discomfort, has been cleared by Cardiology. We will arrange for outpatient stress test, it does not seem to be any cardiac etiology. 3. Chronic anxiety and depression. The patient recommended psychiatric consult. We will continue trazodone 50 mg at bedtime and Klonopin 0.5 mg b.i.d., Sonata 5 mg at bedtime. We will continue current therapy. Continue Protonix 40 mg every morning for history of gastritis. Gerber Thornton MD
--- NOTE | 2018-05-09 16:07 | PN ---
DATE: 05/09/2018 REASON FOR CONSULTATION AND FOLLOWUP: Chest pain, anxiety disorder, borderline diabetes. SUBJECTIVE: The patient denies any chest pain, shortness of breath, or any palpitation. OBJECTIVE: GENERAL: Not in apparent distress. VITAL SIGNS: Temperature afebrile, heart rate 77, blood pressure 103/62. HEENT: PERRLA. Extraocular muscles intact. NECK: Supple. No carotid bruit or thyromegaly. CHEST: Clear to auscultation. HEART: S1 and S2. Regular. ABDOMEN: Soft. EXTREMITIES: Clubbing and cyanosis negative. LABORATORY DATA: Blood workup as follows, WBC 7.3, hemoglobin 15.3, hematocrit 45.3, platelet count 288. Chemistry show sodium 141, potassium 4, chloride 109, CO2 of 24, anion gap of 13, BUN 15, creatinine 0.7. Total triglyceride 112, cholesterol 163, LDL 106, HDL 39. IMPRESSION: A 47-year-old female with past medical history significant for borderline diabetes. Yesterday underwent esophagogastroduodenoscopy, endoscopy, colonoscopy; atypical chest pain. Yesterday, patient is cleared for colonoscopy, but given the multiple risk factors of coronary artery disease, suggest an echo and stress test as an outpatient. Patient stress test as an outpatient. RECOMMENDATIONS: The patient was given a Cardiology appointment and will schedule the stress test in two to three weeks, discussed with the patient for risk stratification. In the interim, continue GI followup. So far, no evidence of acute KS. We will follow with her after the stress test. Thank you Dr. Thornton for providing us the opportunity in taking care of the patient. We will discontinue telemetry. When the patient is cleared from the GI, okay to be discharged. Stress test, as mentioned, is scheduled in two to three weeks as outpatient. Robert Naidu MD
[2018-05-09] MEDS ORDERED: Gadodiamide 287 MG/ML VIAL (15ML) IV ONE (16:47)
[2018-05-09 16:51] VITALS: BP 107/65; PULSE 76; TEMP 98.3; O2SAT 99
--- NOTE | 2018-05-10 10:23 | MRI ---
Date of service: 05/09/2018 PROCEDURE: MRI Abdomen with and without contrast with MRCP HISTORY: Evaluate hepatic lesions. Elevated ALP COMPARISON: None available. TECHNIQUE: Multisequence, multiplanar MR images of the abdomen with and without gadolinium contrast enhancement. 15 cc of Omniscan FINDINGS: LIVER: There is a 13 mm lesion in the left lobe of the liver that shows the typical characteristics of hemangioma. There is nodular enhancement on the early phases. The whole lesion fills in with contrast on the later phases. This is high in signal intensity on T2 imaging. There is a simple cyst near the sally hepatis measuring 2 cm in diameter. The findings are unchanged compared to 01/27/2012 GALLBLADDER: The gallbladder is unremarkable. The common duct is normal in caliber. SPLEEN: Unremarkable. PANCREAS: Unremarkable. ADRENALS: Unremarkable. KIDNEYS: Unremarkable. AORTA: No aneurysm. ASCITES: None. PERITONEUM: Unremarkable. LYMPH NODES: Unremarkable. OTHER FINDINGS: None. IMPRESSION: Simple cyst in the right lobe of the liver near the sally hepatis. Small hemangioma in the left lobe. No evidence of biliary obstruction
--- NOTE | 2018-05-10 10:35 | CP.PCM.PCO ---
Physician Communication Note - Physician Communication Note Physician Communication Note: pt was d/c yesterday
--- NOTE | 2018-05-11 05:25 | DS ---
HISTORY OF PRESENT ILLNESS: A 47-year-old female came in with rectal bleeding and anxiety. The patient was seen by GI consult, underwent colonoscopy and was negative and the patient also was seen by pulmonary consult, recommended sleep study as an outpatient. CT of the lungs before previous admission for her nodules, which was negative except a small tiny nodule and some pleural . The patient is not an active smoker. She is at low risk. She keeps coming to the emergency room, otherwise to be seen by psychiatrist and has been seen in the previous admission and was stable for discharge. She has no suicidal risk or any harms to herself or others and was hoping to get her back to psych consult. We will discharge her on Klonopin, discharge her on home medications the patient. PHYSICAL EXAMINATION: VITAL SIGNS: Stable. Temperature 98.3, heart rate 76, blood pressure 107/65, respirations 19, and sat 99%. HEAD AND NECK: Normal. No JVD. No thyromegaly. CHEST: Clear bilateral. CARDIAC: First sound and second sound normal. ABDOMEN: Soft and nontender. EXTREMITIES: No edema. NEUROLOGIC: Normal. MRCP was negative for any pathology except for hemangiomas and cyst. Negative sally hepatis. The patient was discharged home to be followed in office next day. DISCHARGE DIAGNOSES: 1. Rectal bleeding, unclear etiology. 2. Anxiety, chronic. 3. The patient has lung nodules. 4. Liver cysts and liver hemangiomas. 5. Panic attacks. 6. History of depression, on Zoloft and took Adderall in the past. PLAN: The patient was advised to follow up in the office to resume 24 hours. If she is stable and no risk of suicidal or any homicidal or any harm to herself or anybody, will be discharged and I did advise the patient to see psychiatry as outpatient for continuation of her care. Gerber Thornton MD
== END 2018-05-09 18:27 | disposition home or self-care (01) ==
LOC: ED 02:42 → ERH 04:41 → 3RNO 22:43
PROVIDERS: ADMIT Internal Medicine; ATTEND Internal Medicine
DX: K92.1 Melena (principal); R07.89 Other chest pain; K31.84 Gastroparesis; K29.50 Unspecified chronic gastritis without bleeding; D18.03 Hemangioma of intra-abdominal structures; F90.9 Attention-deficit hyperactivity disorder, unspecified type; F32.9 Major depressive disorder, single episode, unspecified; E78.5 Hyperlipidemia, unspecified; F41.0 Panic disorder [episodic paroxysmal anxiety]; I10 Essential (primary) hypertension; R91.8 Other nonspecific abnormal finding of lung field; R73.03 Prediabetes; G47.30 Sleep apnea, unspecified; Z87.891 Personal history of nicotine dependence; K76.89 Other specified diseases of liver; Z80.1 Family history of malignant neoplasm of trachea, bronchus and lung; K64.8 Other hemorrhoids
CPT/HCPCS: 36415; 43239; 45380; 71045; 74183; 80053; 80061; 82306; 82533; 82550; 83036; 83615; 84439; 84443; 84484; 84703; 85027; 85378; 85610; 85730; 88305; 88342; 93005; 96374; 99285; A9579; G0378; J2001; J2060; J2250; J2704; J3010

== ENCOUNTER 2018-05-11 08:20 | Outpatient (CLI) | payer MEDICAID | END 2018-05-11 08:21 | disposition home or self-care (01) | LOC: RAD 08:20 ==

== ENCOUNTER 2018-05-12 15:29 | Observation (INO) | payer MEDICAID ==
[2018-05-12 15:49] VITALS: BMI 28.3
--- NOTE | 2018-05-12 16:10 | ED PDOC ---
Arrival/HPI - General Chief Complaint: Headache Time Seen by Provider: 05/12/18 15:53 Historian: Patient - History of Present Illness Time/Duration: Other (several weeks) Symptom Onset: Gradual Symptom Course: Worsening Severity Level: Severe Activities at Onset: Rest Associated Symptoms (Text): 05/12/18 16:07 Patient complains of severe generalized weakness and fatigue. She feels as if she is going to faint. She has a posterior headache. She was discharged from the hospital several days ago. She was seen in the office today by her PMD , who directed her to the emergency department. I spoke with him and he requested lab work CT scan and observation for an MRI in the morning. She is extremely anxious and nervous. There are no objective findings on her exam. She had CT scan of her soft tissue neck and chest which were unrevealing. Her workup was unrevealing. Lives at home alone. Past Medical History - Past History Past History: No Previous - Infectious Disease Hx of Infectious Diseases: None - Tetanus Immunization Tetanus Immunization: Unknown - Reproductive Menopause: Yes Currently : No - Cardiac Hx Cardiac Disorders: Yes - Pulmonary Hx Respiratory Disorders: Yes (SMOKED CIGARETTES PPD .QUIT 20 YRS AGO.) - Neurological Hx Neurological Disorder: No - HEENT Hx HEENT Disorder: No - Renal Hx Renal Disorder: No - Endocrine/Metabolic Hx Endocrine Disorders: No - Hematological/Oncological Hx Blood Transfusions: No Hx Blood Transfusion Reaction: No - Integumentary Hx Dermatological Disorder: No - Musculoskeletal/Rheumatological Hx Musculoskeletal Disorders: No Hx Back Pain: Yes - Gastrointestinal Hx Gastrointestinal Disorders: Yes (CONSTIPATION) Hx Gastroesophageal Reflux: Yes - Genitourinary/Gynecological Hx Genitourinary Disorders: Yes (ENDOMETRIOSIS) - Psychiatric Hx Psychophysiologic Disorder: Yes (INSOMNIA) Hx Anxiety: Yes Hx Substance Use: No - Surgical History Other/Comment: tonsillectomy - Anesthesia Hx Anesthesia Reactions: No Hx Malignant Hyperthermia: No - Suicidal Assessment Feels Threatened In Home Enviroment: No Family/Social History - Physician Review Nursing Documentation Reviewed: Yes Family/Social History: Unknown Family HX Smoking Status: Former Smoker (quit smoking 20 years ago) Hx Alcohol Use: No Hx Substance Use: No Hx Substance Use Treatment: No Allergies/Home Meds Allergies/Adverse Reactions: Allergies No Known Allergies Allergy (Verified 05/06/18 15:22) Home Medications: Home Meds Medication Instructions Recorded Confirmed RX: No Known Home Med 05/12/18 05/12/18 Review of Systems - Physician Review All systems were reviewed & negative as marked: Yes - Review of Systems Constitutional: Fatigue. absent: Fevers Respiratory: absent: SOB, Cough, Wheezing Cardiovascular: absent: Chest Pain, Palpitations, Syncope Gastrointestinal: absent: Abdominal Pain, Nausea, Vomiting Neurological: Headache, Dizziness. absent: Focal Weakness, Gait Changes, Speech Changes, Facial Droop, Disequilibrium, Seizure Physical Exam Temperature: Afebrile Blood Pressure: Normal Pulse: Regular Respiratory Rate: Normal Appearance: Positive for: Well-Appearing, Non-Toxic, Comfortable, Other (anxious) Pain Distress: None Mental Status: Positive for: Alert and Oriented X 3 - Systems Exam Head: Present: Atraumatic, Normocephalic Pupils: Present: PERRL Extroacular Muscles: Present: EOMI Conjunctiva: Present: Normal Ears: Present: NORMAL TM, Normal Canal. No: Erythema, TM Bulging Mouth: Present: Moist Mucous Membranes Pharnyx: No: ERYTHEMA, EXUDATE, TONSILS ENLARGED Neck: Present: Normal Range of Motion Respiratory/Chest: Present: Clear to Auscultation, Good Air Exchange. No: Respiratory Distress, Accessory Muscle Use Cardiovascular: Present: Regular Rate and Rhythm, Normal S1, S2. No: Murmurs Abdomen: No: Tenderness, Distention, Peritoneal Signs Upper Extremity: Present: Normal Inspection. No: Cyanosis, Edema Lower Extremity: Present: Normal Inspection. No: Edema Neurological: Present: GCS=15, CN II-XII Intact, Speech Normal, Motor Func Grossly Intact, Normal Sensory Function, Normal Cerebellar Funct Skin: Present: Warm, Dry, Normal Color. No: Rashes Psychiatric: Present: Alert, Oriented x 3, Normal Insight, Normal Concentration, Anxious. No: Normal Affect (agitated with pressured speech), Normal Mood, Depressed Mood, Suicidal Ideation, Homicidal Ideation, Delusional, Hallucinations, Intoxicated, Lethargic Medical Decision Making - RAD Interpretation Radiology Orders: 05/12/18 16:06 HEAD W/O CONTRAST [CT] Stat CT scan of the head as read by the radiologist is unremarkable. Erisa Attorney: Radiologist Disposition/Present on Arrival - Present on Arrival Any Indicators Present on Arrival: No History of DVT/PE: No History of Uncontrolled Diabetes: No Urinary Catheter: No History of Decub. Ulcer: No History Surgical Site Infection Following: None - Disposition Have Diagnosis and Disposition been Completed?: Yes Diagnosis: Anxiety, Headache, Weakness Disposition: HOSPITALIZED Disposition Time: 17:52 Patient Plan: Observation Patient Problems: Current Active Problems Problem Status Onset Anxiety Acute Headache Acute Weakness Acute Condition: GOOD Discharge Instructions (ExitCare): Weakness (ED) Forms: [employer] (Hebrew)
[2018-05-12 16:40] LABS: BASO # 0.01 K/mm3 (0.0-2.0); BASO % 0.1 % (0.0-3.0); EOS % 0.2 % (1.5-5.0); HEMOGLOBIN 15.6 g/dL (12.0-16.0); LYMPH # 1.8 (1.2-3.4); LYMPH % 20.6 % (22.0-35.0); MEAN CELL VOLUME 87.4 fl (80.0-105.0); MEAN CORPUSCULAR HEMOGLOBIN 30.2 pg (25.0-35.0); MEAN CORPUSCULAR HGB CONC 34.5 g/dl (31.0-37.0); MEAN PLATELET VOLUME 9.9 fl (7.0-11.0); MONO # 0.8 (0.1-0.6); MONO % 9.1 % (1.0-6.0); RBC 5.17 10^6/uL (3.5-6.1); RED CELL DISTRIBUTION WIDTH 12.4 % (11.5-14.5); WHITE BLOOD COUNT 8.9 10^3/uL (4.5-11.0)
[2018-05-12 17:32] LABS: ALB/GLOB RATIO 1.4 (1.1-1.8); ALBUMIN 5.1 g/dL (3.0-4.8); ALT/SGPT 19 U/L (7-56); AST/SGOT 44 U/L (14-36); BLOOD UREA NITROGEN 13 mg/dL (7-21); CALCIUM 10.2 mg/dL (8.4-10.5); GFR NON-AFRICAN AMERICAN > 60
--- NOTE | 2018-05-12 17:54 | CT ---
Date of service: 05/12/2018 PROCEDURE: CT HEAD WITHOUT CONTRAST. HISTORY: NUGENT COMPARISON: None available. TECHNIQUE: Axial computed tomography images were obtained through the head/brain without intravenous contrast. Radiation dose: Total exam DLP = 917.99 mGy-cm. This CT exam was performed using one or more of the following dose reduction techniques: Automated exposure control, adjustment of the mA and/or kV according to patient size, and/or use of iterative reconstruction technique. FINDINGS: HEMORRHAGE: No intracranial hemorrhage. BRAIN: No mass effect or edema. No atrophy or chronic microvascular ischemic changes. VENTRICLES: Unremarkable. No hydrocephalus. CALVARIUM: Unremarkable. PARANASAL SINUSES: Unremarkable as visualized. No significant inflammatory changes. MASTOID AIR CELLS: Unremarkable as visualized. No inflammatory changes. OTHER FINDINGS: None. IMPRESSION: Normal CT of the Head. No intracranial mass, hemorrhage or evidence of acute infarct.
--- NOTE | 2018-05-12 23:34 | CP.PCM.PN ---
Subjective - Date & Time of Evaluation Date of Evaluation: 05/12/18 Time of Evaluation: 23:33 - Subjective Subjective: It was requested to order diet. Objective - Vital Signs/Intake and Output Vital Signs (last 24 hours): Temp Pulse Resp BP Pulse Ox 98.2 F 71 18 117/74 100 05/12/18 22:57 05/12/18 22:57 05/12/18 22:57 05/12/18 22:57 05/12/18 22:57 - Labs Labs: 05/12/18 16:37 05/12/18 16:37
[2018-05-13] MEDS: Benzocaine/Menthol (Cepacol) Lozenge MT PRN ×3 (05:37→21:43)
[2018-05-13] MEDS ORDERED: Apap-Butalbital-Caffeine 325-50-40mg Tab PO PRN (14:35)
--- NOTE | 2018-05-13 14:40 | CON ---
DATE: 05/13/2018 HISTORY OF PRESENT ILLNESS: In short, the patient is a 47-year-old female with self-reported history of depression and anxiety. The patient has multiple somatic complaints for what the patient was coming to the hospital for the past month on multiple occasions. The patient each and every time signed herself out from the hospital against medical advice. This time, the patient came to the hospital complaining of headache and anxiety that she is going to faint. The patient had multiple workups such as head CT scan, neck CT scan, MRCP. Psych consult was called for evaluation of panic and inability to function. This television script writer is very familiar with this patient from the multiple consultation services in the past, but the patient was not consistent with her willingness to get treatment. Last time, the patient was seen by this television script writer on 05/05/2018. The patient reported that she sees a nurse practitioner at [facility], but she is noncompliant with her medications such as stimulants and trazodone because those medication were making her feel like a zombie. Going back to the presentation during this admission, the patient remembers this television script writer by her name. The patient reported that she was not able to function. She is very concerned about her appearance. The patient was checking her "pale skin" every few minutes. The patient reported that she is convinced that she has multiple medical issues which medical team was not able to find. The patient reported that she is very uneasy. She constantly feels anxious and panicky. The patient reported that she was not able to fall asleep to stay asleep. The patient reported that she feels hopeless and helpless. The patient acknowledged that this behavior is very irrational. But still, the patient was not able to help herself. The patient said that she has some nodules in her lungs and she has severe medical issues, but her primary care physician was not able to find it. The patient cannot exclude the possibility that her mind is exaggerating all of her symptoms. Vital signs reviewed, seems to be stable. Medications reviewed, only Cepacol was started. Chemistry reviewed. Microbiology reviewed. MENTAL STATUS EXAMINATION: The patient appears to be alert, oriented, anxious, poor personal hygiene, intermittent eye contact, overproductive speech. Mood described, I am not feeling well. Affect was tearful and labile. Thought process circumstantial and tangential. The patient obviously had difficulty to stay focused and concentrate. Thought content, the patient denied visual, auditory, tactile hallucinations. Denied paranoid ideation. The patient denied thoughts of harming herself or others, but the patient was feeling hopeless and passive wish to be . IMPRESSION: Somatization disorder needs to be ruled out. Generalized anxiety disorder, obsessive-compulsive disorder needs to be ruled out. Major depressive disorder needs to be ruled out. PLAN: Prozac was initiated. Seroquel 25 mg initiated. Klonopin also initiated. The patient was willing to go to the psychiatric inpatient unit after medical stabilization. This television script writer notified Dr. Thornton, awaiting for a call back. The patient might greatly benefit from the psychiatric admission. This television script writer reviewed impression along the CT scan which seems to be within normal limits. This television script writer will follow up and advise accordingly. Meanwhile, the patient is willing to sign herself into the psychiatric inpatient unit. Zeina Mayes MD MTDPolly
[2018-05-13 16:34] VITALS: O2SAT 99
--- NOTE | 2018-05-13 19:56 | CON ---
DATE: 05/13/2018 HISTORY OF PRESENT ILLNESS: This is a 47-year-old female, who complains of severe generalized weakness and fatigue. Also, complains of headache in the back of the head, and came to the hospital. CAT scan of the head was done which was reported negative. Called to elevate the patient. PAST MEDICAL HISTORY: Nonsignificant. ALLERGIES: NO KNOW DRUG ALLERGIES. MEDICATIONS: No home medications. PHYSICAL EXAMINATION: HEENT: Normocephalic and atraumatic. NECK: Supple. NEUROLOGIC: Alert, awake, and oriented x3. No aphasia. Cranial nerves II through XII are tested. Pupils reactive. EOM intact. Visual field full. No facial asymmetry. Tongue midline. Motor examination; moves all the extremities equally. Tone normal. Deep tendon reflexes 1+. Both plantars are downgoing. Sensory appears intact. Cerebellar gait deferred. IMPRESSION: Headache, possibly tension type headache and anxiety. CAT scan of the head was done which was reported negative. PLAN: Continue present management. We will follow up. Ozzie Adan MD
[2018-05-13] MEDS: Enoxaparin 40 mg Syringe SC SCH (21:40)
--- NOTE | 2018-05-13 22:24 | HP ---
DATE OF EXAM: 05/13/2018 REASON FOR ADMISSIONS: Headache, dizzy and feeling weak. HISTORY OF PRESENT ILLNESS: This is 47-year-old female with a history of chronic panic anxiety disorder that has been admitted more than once to the emergency room in the last 10 days, came in with headache, severe enough, pressure was elevated. She feels the headache is severe. She could not hold this. She felt unsteady. She almost feel like loosing her urine sphincter control and she feel weak in her left arm. Patient with subjective symptoms. Because of that associated symptoms, we advised to go to the ER for evaluation and observations. There is no any fever, no chills. No nausea or vomiting. No burning with urination. No other complaint. No chest pain. Patient recently was admitted to the hospital and she had a colonoscopy. CT abdomen and pelvis which is negative and CT chest which has small lung nodules. She is nonsmoker. HOME MEDICATIONS: She was prescribed Klonopin. She was given Klonopin, Zoloft and Prilosec. PAST MEDICAL HISTORY: Chronic anxiety, chronic depression. She has been on medication for that. Seen as outpatient by psychiatry. REVIEW OF SYSTEMS: As in the present illness. She has some anxiety, issues, worry about herself, feeling she is going to , old and emotional symptoms. Patient also does have discomforts which had endoscopy for it and she had a colonoscopy for her underlying anemia and it was negative. ALLERGIES: NO KNOWN ALLERGIES. SOCIAL HISTORY: Nonsmoker. No drinking. She lives by herself. No children. FAMILY HISTORY: Noncontributory. PHYSICAL EXAMINATION: VITAL SIGNS: Temperature is 98, heart rate 71, blood pressure 117/74, respiration 18, sat 100%. HEAD AND NECK: Normal. No JVD. No thyromegaly. CHEST: Clear bilateral. CARDIAC: First sounds and second sounds normal. ABDOMEN: Soft and nontender. EXTREMITIES: No edema. NEUROLOGIC: Normal. LABORATORY STUDIES: The patient had a CT of her head when she came in due to her headaches and that was negative. She also had a CT of her neck a day before that, which is unremarkable. She also had blood test which shows white count 8.9, hemoglobin 15.6, hematocrit 45.2, platelets 337. Sodium 142, potassium 3.6, chloride 104, bicarb 25, BUN 13, creatinine 0.7 and blood sugar 111. IMPRESSION AND PLAN: 1. Headache, dizziness, feeling numb and weak in her site. I believe, the patient is more neurologic and more anxious and panicky than symptoms; however, CT of the head was negative. We get a Neurology consult, psychiatric consult and will continue followup in that. 2. Panic disorder and anxiety, depression. Possible, we will get DrRakesh seen her before for evaluation, possible admit her to psych floor. 3. Gastritis. We will continue her Prilosec and we will follow up clinically. Continue current treatment. Gerber Thornton MD
[2018-05-14 07:57] VITALS: BP 118/74; PULSE 88; RESP 20; TEMP 98.2
[2018-05-14] MEDS: Benzocaine/Menthol (Cepacol) Lozenge MT PRN (08:21)
[2018-05-14] MEDS: Enoxaparin 40 mg Syringe SC SCH ×2 (10:02→10:07)
--- NOTE | 2018-05-14 14:57 | PN ---
DATE: 05/14/2018 SUBJECTIVE: The patient was seen today. The patient still wants to sign herself into the psychiatric inpatient unit. The patient tried Seroquel yesterday and reported that she did not like this medication because she was feeling like "zombie,"the patient reported that she was on Abilify in the past and she was feeling the same way. The patient still has feeling of overwhelming and hopelessness, depressed mood. The patient is willing to sign into the psychiatric inpatient unit. Vital signs are stable. Medications reviewed. Labs reviewed. Discussed with Dr. Thornton. As per Dr. Thornton, the patient is medically cleared for transfer. MENTAL STATUS EXAM Poor personal hygiene. The patient appears to be overwhelmed, intermittent eye contact. Speech overproductive, but not pressured. Thought process, circumstantial and tangential. Mood described as depressed and overwhelmed. Thought content, the patient denied hearing voices, denied seeing things, but the patient has a lot of somatic complaints and feels that she has severe medical issues, but medical team did not find the cause of all of her somatic symptoms. Insight and judgment seems to be limited. Impulses are unpredictable. IMPRESSION: Rule out major depressive disorder, rule out somatoform disorder, rule out somatization, rule out generalized anxiety disorder, rule out panic disorder. PLAN: The patient will be transferred to the psychiatric inpatient unit. The patient will be followed up with Dr. Adan for her neurological complaints of dizziness and headaches for what patient was started on Fioricet. Dr. Thornton will follow up on this patient. Medications were discussed. This continuity writer will initiate Geodon for mood stabilization. We will follow up and advise accordingly. The patient will be transferred to the psychiatric inpatient unit. Thank you very much for letting me participate in care of your patient. Should you have any questions, give me a call back. Zeina Mayes MD
--- NOTE | 2018-05-15 08:31 | DS ---
HISTORY OF PRESENT ILLNESS: A 47-year-old female came in with symptoms of dizziness, headache, anxiety panicky, she went to the ER admitted for observation. Seen by Neurology, Dr. Adan and her headache was tension headache and was resolved. CT of the head was negative. She was seen also by Psychiatry, Dr. Pastrana. She was advised to be admitted to Psych Floor for further treatment and evaluation. She does have history of depression, history of panic disorder, and chronic anxiety. The patient was recommended to be admitted to Psych Floor. DISCHARGE PHYSICAL EXAMINATION: VITAL SIGNS: Stable. Temperature 98, heart rate 81, blood pressure 108/80, respirations 18, and saturation 99%. HEAD AND NECK: Normal. No JVD. No thyromegaly. CHEST: Clear bilaterally. CARDIAC: First sound and second sounds normal. ABDOMEN: Soft and nontender. EXTREMITIES: No edema. NEUROLOGIC: Normal. LABORATORY DATA: Within normal range. CT of the head negative. DISCHARGE DIAGNOSES: 1. Tension headache. 2. Chronic anxiety with acute worsening. 3. Panic disorder. 4. Possible bipolar disorder or depression. ASSESSMENT AND PLAN: We will continue follow up with psychiatrist. The patient will be discharged to Psych Floor. The patient was taking medication of Klonopin and Zoloft as outpatient. Psych medication will be adjusted by Dr. Pastrana, Psychiatry. Gerber Thornton MD
== END 2018-05-14 13:24 ==
LOC: ED 15:29 → ERH 17:52 → 5RNO 23:00
PROVIDERS: ADMIT Internal Medicine; ATTEND Internal Medicine
DX: G44.209 Tension-type headache, unspecified, not intractable (principal); F41.0 Panic disorder [episodic paroxysmal anxiety]; K29.70 Gastritis, unspecified, without bleeding; Z91.14 Patient's other noncompliance with medication regimen
CPT/HCPCS: 70450; 80053; 83735; 85025; 99285; G0378

== ENCOUNTER 2018-05-14 13:28 | Inpatient (IN) | payer MEDICAID ==
[2018-05-14] MEDS ORDERED: Alum-Mag Hydrox-Simethicone Susp (30 mL) PO PRN (13:59)
[2018-05-14] MEDS ORDERED: Magnesium Hydroxide Susp 30 ml UD PO PRN (14:00)
[2018-05-14] MEDS ORDERED: Apap-Butalbital-Caffeine 325-50-40mg Tab PO PRN (14:00)
[2018-05-14] MEDS ORDERED: Benzocaine/Menthol (Cepacol) Lozenge MT PRN (14:02)
--- NOTE | 2018-05-14 18:51 | PCM.BM ---
Treatment Plan Problems - Problems identified on initial assessmt Anxiety Date Initiated: 05/14/18 Time Initiated: 03:00 Assessment reference: NA Status: Active Ineffective coping Date Initiated: 05/14/18 Time Initiated: 04:00 Assessment reference: NA Status: Active Treatment assets and liabiliti Patient Assests: ADL independent, good interpersonal skills Patient Liabilities: live alone, poor support system - Milieu Protocol Maintain good personal hygiene: daily Encourage regular showers, daily Remind patient to perform daily oral care Conduct patient checks and document Observation sheet: Q15 minutes Maintain personal safety: daily Educate patient to report safety concerns to staff Medication safety: Monitor for expected outcome, potential side effects: daily, Assess readiness for medication education: daily Family Contact Family involvement: Family/SO is involved Family contact: Family has been contacted by patient - Goals for Treatment Patient goals for treatment: I want my anxiety and depression addressed Discharge/Continuing Care - Education Needs Education Needs: Patient Medication, Patient Coping Skills, Patient Aftercare Safety Plan - Discharge Discharge Criteria: Tolerates medication w/o severe side effects
[2018-05-15 07:19] VITALS: RESP 20
[2018-05-15 08:17] LABS: GLUCOSE,FASTING 93 mg/dL (65-110); HDL CHOLESTEROL 40 mg/dL (29-60)
[2018-05-15 08:30] LABS: LDL CHOLESTEROL 115 mg/dL (0-129)
[2018-05-15 08:36] LABS: FREE T4 0.89 ng/dL (0.78-2.19)
[2018-05-15] MEDS: Pantoprazole 40 mg EC Tab PO SCH ×2 (09:21→09:33)
--- NOTE | 2018-05-15 13:37 | PCM.PSYCH ---
Initial Psychiatric Evaluation - Initial Psychiatric Evaluation Type of Admission: Voluntary Legal Status: Capacity (Patient has capacity to sign consent for treatment) Chief Complaint (in patient's own words): "my mind was exaggerating all of my symptoms, for example I know that I have cyst in my liver, I was checking and rechecking websites, I would come to conclusion that this is parasites in my liver, I would come to the hospital asking for admission and explanations, another example I would check my skin, I would think that I am very pale, I will start treating about anemia and would, with conclusion that I have severe medical issues which nobody could diagnosed and I would bring myself to the hospital." Patient's Reaction to Hospitalization: Patient was transferred from the medical floor for evaluation and stabilization of somatic delusions, anxiety, depression, inability to function. History of Present Illness and Precipitating Events: Shortly, patient is a 47-year old female with self-reported history of anxiety and depression, denied previous psychiatric admissions, patient has history of multiple somatic complaints which leads patient to multiple emergency room visits as well as medical floor admissions. Patient came to [facility] on multiple occasions complaining on: back pain, weakness, chest pain, lung nodule, headache and weakness. Altogether patient was in the emergency room 8 times since May 04, 2018. May 02, 2018, May 04, 2018, May 04, 2018, May 06, 2018, May 08, 2018, May 10, 2018, May 11, 2018, May 12, 2018, 2018 patient was transferred to the psychiatric inpatient unit. Patient currently under care or of nurse practitioner at [facility], at the same time patient was noncompliant with his medications because "it was making me feel like a zombie", patient obviously requires further hospitalization, observation, med management this ad writer is very familiar with this patient from previous consultation services which took place here in [facility]. Please see admission notes for more information. Patient was seen today at the treatment team meeting, patient presented with improvement of her symptoms, patient was able to have logical conversation, hygiene much improved, patient was less anxious to compare with the medical admission. Patient had good ADLs. Patient still presented to be emotionally labile, patient was giggling inappropriately, but overall has some improvement with her presentation. Patient knowledge that she was overwhelmed with her medical conditions, "my mind was exaggerating all of my symptoms, for example I know that I have cyst in my liver, I was checking and rechecking websites, I would come to conclusion that this is parasites in my liver, I would come to the hospital asking for admission and explanations, another example I would check my skin, I would think that I am very pale, I will start treating about anemia and would, with conclusion that I have severe medical issues which nobody could diagnosed and I would bring myself to the hospital." pt has relatively good insight into her irrational thinking. Patient reported that she was feeling "overwhelmed, I was driving myself crazy, I was not able to think about anything else but my medical issues." Patient reported that she was feeling depressed and very anxious. Patient was not able to function, patient was living on her savings which going to be depleted soon. Patient denied thoughts of harming herself or others, denied hearing voices, denied seeing things, denied paranoid ideations. No manic symptoms reported or observed. Patient denied using any drugs, denied smoking, denied alcohol consumption. Past psychiatric history: Patient currently under nurse practitioner care at [facility], patient reported that she was diagnosed with ADHD, age of 30 patient was prescribed stimulants, Wellbutrin which patient was not compliant. Patient denies history of suicidal attempts, denied history of being admitted to the psychiatric inpatient unit. Medical history: Patient has multiple somatic complaints, patient usually has very vague complaints such as "generalized weakness and fatigue, afraid that she is going to faint", patient had CT scan of the head, neck, MRI, which seems to be unremarkable. Family history: Unknown. Social history: Patient lives alone, does not work Lab Results 05/15/18 08:00: Free T4 0.89, TSH 3rd Generation 2.22 05/15/18 08:00: Fasting Glucose 93, Triglycerides 218 H, Cholesterol 191, LDL Cholesterol Direct 115, HDL Cholesterol 40 Vital Signs Temp Pulse Resp BP 05/15/18 07:18 98.0 F 74 20 112/81 05/14/18 15:41 18 The patient failed the outpatient lower level of care: Yes Current Medications: Active Medications Generic Name Dose Route Start Last Admin Trade Name Freq PRN Reason Stop Dose Admin Acetaminophen 650 mg 05/14/18 13:59 Tylenol 325mg Tab PO Q6H PRN Pain, moderate (4-7) Acetaminophen/Butalbital/Caffeine 1 tab 05/14/18 14:00 Fioricet PO Q4H PRN Headache Al Hydrox/Mg Hydrox/Simethicone 30 ml 05/14/18 13:59 Maalox Plus 30 Ml PO DAILY PRN Indigestion / Heartburn Benzocaine/Menthol 1 liana 05/14/18 14:02 Cepacol Sore Throat MT Q2H PRN Sore Throat Clonazepam 0.25 mg 05/14/18 16:00 05/14/18 17:52 Klonopin PO Not Given BID ALICIA Protocol Fluoxetine HCl 20 mg 05/15/18 08:00 Prozac PO DAILY ALICIA Lorazepam 2 mg 05/14/18 14:12 05/14/18 21:26 Ativan PO 2 mg Q6H PRN Administration Anxiety Protocol Lorazepam 2 mg 05/14/18 14:13 Ativan IM Q6H PRN Agitation Protocol Magnesium Hydroxide 30 ml 05/14/18 14:00 Milk Of Magnesia PO DAILY PRN Constipation Ziprasidone 20 mg 05/14/18 22:00 05/14/18 21:25 Geodon Cap PO Not Given HS ALICIA Protocol Ziprasidone 20 mg 05/14/18 14:07 Geodon Cap PO Q6H PRN Anxiety Protocol Ziprasidone 20 mg 05/14/18 14:10 Geodon Inj IM Q6H PRN Agitation Protocol Present on Admission - Present on Admission Any Indicators Present on Admission: No Review of Systems - Review of Systems Systems not reviewed;Unavailable: Acuity of Condition - Constitutional Constitutional: As Per HPI - EENT Eyes: As Per HPI Ears: As Per HPI Nose/Mouth/Throat: As Per HPI - Breasts Breasts: As Per HPI - Cardiovascular Cardiovascular: As Per HPI - Respiratory Respiratory: As Per HPI - Gastrointestinal Gastrointestinal: As Per HPI - Genitourinary Genitourinary: As Per HPI - Reproductive: Female Reproductive:Female: As Per HPI - Menstruation Menstruation: As Per HPI - Musculoskeletal Musculoskeletal: As Per HPI - Integumentary Integumentary: As Per HPI - Neurological Neurological: As Per HPI - Psychiatric Psychiatric: As Per HPI - Endocrine Endocrine: As Per HPI - Hematologic/Lymphatic Hematologic: As Per HPI Past Patient History - Past Psychiatric History Previous Treatment History: None Prior Professional Help: See HPI Prior Psychiatric Treatment: See HPI At what hospital: See HPI Duration: See HPI Nature of Treatment: See HPI Explanation of prior treatment: See HPI - PSYCHIATRIC Hx Anxiety: Yes Hx Substance Use: No - Infectious Disease Hx of Infectious Diseases: None - Tetanus Immunizations Tetanus Immunization: Unknown - CARDIAC Hx Cardiac Disorders: Yes - PULMONARY Hx Respiratory Disorders: Yes (SMOKED CIGARETTES PPD .QUIT 20 YRS AGO.) - NEUROLOGICAL Hx Neurological Disorder: No - HEENT Hx HEENT Problems: No - RENAL Hx Chronic Kidney Disease: No - ENDOCRINE/METABOLIC Hx Endocrine Disorders: No - HEMATOLOGICAL/ONCOLOGICAL Hx Blood Disorders: No - INTEGUMENTARY Hx Dermatological Problems: No - MUSCULOSKELETAL/RHEUMATOLOGICAL Hx Musculoskeletal Disorders: No Hx Back Pain: Yes Hx Falls: No - GASTROINTESTINAL Hx Gastrointestinal Disorders: Yes (CONSTIPATION) Hx Gastroesophageal Reflux: Yes - GENITOURINARY/GYNECOLOGICAL Hx Genitourinary Disorders: Yes (ENDOMETRIOSIS) - SURGICAL HISTORY Hx Surgeries: Yes Other/Comment: tonsillectomy - ANESTHESIA Hx Anesthesia Reactions: No Hx Malignant Hyperthermia: No - Medical/Surgical History Reviewed & confirmed: by mt Meds Allergies/Adverse Reactions: Allergies Allergy/AdvReac Type Severity Reaction Status Date / Time No Known Allergies Allergy Verified 05/14/18 18:30 Mental Status Examination - Personal Presentation Personal Presentation: Looks stated age - Affect Affect: Other (Labile) - Motor Activity Motor Activity: Calm - Reliability in Providing Information Reliability in Providing Information: Fair - Speech Speech: Other (Overproductive) - Mood Mood: Depressed, Anxious, Other - Formal Thought Process Formal Thought Process: Delusions (Somatic) - Obsessions/Compulsions Obsessions: No Compulsions: No - Cognitive Functions Orientation: Person, Place, Situation, Time Sensorium: Alert Attention/Concentration: Easily distracted Abstract Thinking: As evidence by literal perception of proverbs Estimate of Intelligence: Average Judgement: Intact, as evidence by: Insight regarding need for hospitalization - Risk Risk: Self-mutilation, Diminished functioning - Strength & Assets Inventory Strength & Assets Inventory: Cooperative - Limitations Limitations: Living alone, Other (Multiple pains, social issues,) Psychiatric Physical Exam - Physical Exam Reviewed and confirmed: Emergency Department Physical Exam Results - Vital Signs Recent Vital Signs: Last Vital Signs Temp 98.0 F 05/15/18 07:18 Pulse 74 05/15/18 07:18 Resp 20 05/15/18 07:18 BP 112/81 02/11/19 07:18 Pulse Ox - Labs Labs: Laboratory Results - last 24 hr 05/15/18 05/15/18 08:00 08:00 Fasting Glucose 93 Triglycerides 218 H Cholesterol 191 LDL Cholesterol Direct 115 HDL Cholesterol 40 Free T4 0.89 TSH 3rd Generation 2.22 - EKG Data EKG Interpreted by: ER Physician DSM Plan - DSM 5 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 anxiety NOS depression NOS - Recommended/Plan of Treatment Treatment Recommendations and Plan of Treatment: Milieu/structure/supportive therapy SW consultation for discharge plan and social issues Med management Prozac was started yesterday for depression and anxiety Clonazepam 0.5 mg twice a day for anxiety and mood stabilization Geodon was started but patient refused to take it Family involvement Follow up on labs Will monitor closely Pt was educated about risk/benefits and alternatives of medications, coping strategies (safety plan, suicide prevention), relapse prevention, importance of follow up with psychiatrist and therapist, stay away from drugs/alcohol/smoking Projected ELOS: 7 days Prognosis: Fair Discharge Plan and Discharge Criteria: Mood will be stable, pt will be more hopeful, will be not psychotic or anxious, will be tolerating medications well, will not have major side effects, will be able to function, will not pose threat to self or others. - Tobacco Cessation Tobacco Use Status for the last 30 days: Non User Tobacco Use Treatment Practical Counseling Provided: No Tobacco Use Treatment FDA-Approved Cessation Medication Provided: No - Alcohol or Substance Abuse Does the patient have an Alcohol or Substance Abuse Disorder: No Initial Psych Certification - Initial Certification I certify that the inpatient psychiatric facility admission was medically necessary for either: Treatment which could reasonbly be expected to improve pt's condition I estimate of hospitalization is necessary for proper treatment of the patient: 7 Unit of Time: Days My plans for post-hospital care for this patient are: Intensive outpatient program and medication management
--- NOTE | 2018-05-16 01:08 | CON ---
DATE: 05/15/2018 REASON FOR CONSULTATION: A [id number] female on psychiatric floor. I have been asked for medical consultation. HISTORY OF PRESENT ILLNESS: This patient has multiple somatic complaints with multiple admissions with negative findings. She had CT of the chest, CT of abdomen and pelvis, CT of the head, CT of the neck, all results are explained to the patient. There is no significant findings that could explain the symptoms. Blood work was in normal range. She had a colonoscopy. She was finally admitted to Psych Floor because of the extreme anxiety and panic attacks associated with somatic complaints. She does not have any other complaints. PAST MEDICAL HISTORY: As above. She does have some gastritis a few years ago. She does have a history of multiple lung nodules. Recent CT showed resolution of these multiple nodules with a new subpleural lung nodule. She was seen by software quality tester, Dr. Liang. She also had CT abdomen and pelvis. Seen by GI consult. She has some hemangiomas, otherwise negative. No change. Did have MRI and MRCP which is the same findings of hemangioma. No change in liver findings. She also had history of depression and anxiety in the past. SOCIAL HISTORY: She lives by herself. No smoking. No drinking. FAMILY HISTORY: Her brother is in hospital. He has history of alcohol abuse. MEDICATIONS AT HOME: She takes Klonopin 0.25 mg b.i.d., Prozac once a day, Fioricet every 4 hours p.r.n., and Cepacol. REVIEW OF SYSTEMS: Multiple somatic complaints but negative. She complained of neck pain with negative CT. She complained of rectal bleed with negative colonoscopy. She complained of headache with negative CT head. Seen by multiple specialists. Otherwise, negative review of systems. Anxiety is noted and panic attack is noted psychological bates. PHYSICAL EXAMINATION: VITAL SIGNS: Temperature 98, heart rate 74, blood pressure 112/81, respirations 20, and saturation 98%. HEAD AND NECK: Normal. No JVD. No thyromegaly. CHEST: Clear bilaterally. CARDIAC: First sound and second sound normal. ABDOMEN: Soft, obese, and nontender. EXTREMITIES: No edema. NEUROLOGIC: Normal. LABORATORY DATA: Sugar 93. Triglycerides 218. Cholesterol 191. LDL 115. HDL 40. TSH 2.22. Serology; RPR is negative. IMPRESSION AND PLAN: 1. This 47-year-old female with panic attack, anxiety, depression, will be evaluated here in psychiatric floor by the psychiatrist and will follow up with her. 2. Gastritis. Continue Protonix. 3. Multiple somatic complaints, assurance, explanation of her findings on multiple radiological testings. 4. Will follow up with the psychiatrist. Gerber Thornton MD
[2018-05-16] MEDS: Pantoprazole 40 mg EC Tab PO SCH ×2 (09:06→09:09)
[2018-05-16] MEDS ORDERED: Benzocaine/Menthol (Cepacol) Lozenge MT PRN (11:22)
--- NOTE | 2018-05-16 13:25 | PCM.PYCHPN ---
Psychiatric Progress Note - Psychiatric Progress Note Patient seen today, length of contact: 30 minutes Patient Chief Complaint: "Current medication helps me a lot..." Problems Identified/Issues Discussed: Risk/benefits and alternatives of medications discussed, suicide/ homicide prevention, past psychiatric h/o, current psychiatric symptoms, medical problems, risk/benefits and alternatives of medications, medications compliance, coping strategies, substance abuse h/o, relapse prevention, importance of follow up with psychiatrist and therapist, discharge plan. Medical Problems: Please see Dr. Thornton's note for more detailed information. Diagnostic Results: Lab Results 05/15/18 08:00: RPR Nonreactive 05/15/18 08:00: Free T4 0.89, TSH 3rd Generation 2.22 05/15/18 08:00: Fasting Glucose 93, Triglycerides 218 H, Cholesterol 191, LDL Cholesterol Direct 115, HDL Cholesterol 40 Vital Signs Temp Pulse Resp BP 05/16/18 07:00 85 20 125/89 05/15/18 16:00 93 H 122/82 05/15/18 07:18 98.0 F 74 20 112/81 05/14/18 15:41 18 DSM 5 Symptoms Update: Shortly, patient is a 47-year old female with self-reported history of anxiety and depression, denied previous psychiatric admissions, patient has history of multiple somatic complaints which leads patient to multiple emergency room visits as well as medical floor admissions. Patient came to [facility] on multiple occasions complaining on: back pain, weakness, chest pain, lung nodule, headache and weakness. Altogether patient was in the emergency room 8 times since May 04, 2018. May 02, 2018, May 04, 2018, May 04, 2018, May 06, 2018, May 08, 2018, May 10, 2018, May 11, 2018, May 12, 2018, 2018 patient was transferred to the psychiatric inpatient unit. Patient currently under care or of nurse practitioner at [facility], at the same time patient was noncompliant with his medications because "it was making me feel like a zombie", patient obviously requires further hospitalization, observation, med management this database report writer is very familiar with this patient from previous consultation services which took place here in [facility]. Please see admission notes for more information. Patient was seen today at the treatment team meeting , patient presented with improvement of her symptoms, patient was able to have logical conversation, hygiene much improved, patient was less anxious to compare with the medical admission. Patient had good ADLs. Patient reported that she feels "much better", patient reported that current medication is helping her a lot, patient reports that she had a good night sleep, patient reported that she is more clear that her physical symptoms were "overly exaggerated", patient acknowledged that at times she is impulsive and making irrational decisions, for example patient spent $1500 for senior service aide classes but at the same time patient does not believe that she will be able to perform well because she is "germophobic." patient has history of holding a good job for 13 years at [employer] but was fired due to impulsive act "I was complaining that others were smoking at the working place, one day I was feeling extremely angry and I slammed the window in order to prevent smoke to come to the office". Present moment patient presents well, patient is not overly anxious, was able to participate in conversation but still has emotional liability for example patient was smiling and laughing next minute was crying. So far patient tolerates medications well, no side effects observed or reported, aims 0, no EPS. 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 Medication Change: Yes (Prozac increased) Medical Record Reviewed: Yes Consults ordered or reviewed: Medical consultation appreciated Mental Status Examination - Cognitive Function Orientation: Person, Place, Situation, Time Memory: Intact Attention: Poor Concentration: Poor Association: WNL Fund of Knowledge: WNL - Mood Mood: Depressed, Anxious, Other - Affect Affect: Other (Labile) - Formal Thought Process Formal Thought Process: Delusions (Somatic) - Suicidal Ideation Suicidal Ideation: No - Homicidal Ideation Homicidal Ideation: No Goal/Treatment Plan - Goal/Treatment Plan Need for Continued Stay: Remain at risks for inpatient hospitalization, Severe depression anxiety, Discharge may exacerbated symptoms, Severe functional impairment Progress Toward Problem(s) and Goals/Treatment Plan: Milieu/structure/supportive therapy SW consultation for discharge plan and social issues Med management Prozac 30 mg for depression and anxiety Clonazepam 0.25 mg twice a day for anxiety and mood stabilization Geodon was started but patient refused to take it Family involvement Follow up on labs Will monitor closely Pt was educated about risk/benefits and alternatives of medications, coping stra tegies (safety plan, suicide prevention), relapse prevention, importance of follow up with psychiatrist and therapist, stay away from drugs/alcohol/smoking Estimated Date of D/C: 05/18/18
--- NOTE | 2018-05-16 23:40 | PN ---
DATE: 05/16/2018 SUBJECTIVE: The patient is in the Psych floor. She is doing well. She seems better. No distress. No chest pain. No short of breath. Physically and mentally seems better. PHYSICAL EXAMINATION: VITAL SIGNS: Temperature 98, heart rate 85, blood pressure 112/82, respirations 20. HEAD AND NECK: Normal. No JVD. No thyromegaly. CHEST: Clear bilaterally. CARDIAC: First sounds and second sounds are normal. No murmur, rub, or gallop. ABDOMEN: Soft and nontender. EXTREMITIES: No edema. NEUROLOGICAL: Normal. IMPRESSION AND PLAN: 1. Chronic anxiety disorders, panic attacks, probably some sort of psychosomatic illness. The patient seems better with the medications. We will continue current psychiatry treatment. 2. The patient has tachycardia probably secondary to anxiety. We will observe. 3. The patient has some psychosomatic illnesses including the epigastric discomfort due to gastritis. Continue Protonix. Continue current therapy. Will follow up clinically. The patient seems doing well on her current medications. She is on Ativan, Cepacol lozenges, Fioricet for headache, Geodon, Mylanta, milk of magnesia, Protonix, Prozac, and Tylenol. Continue current therapy. Gerber Thornton MD
[2018-05-17] MEDS: Pantoprazole 40 mg EC Tab PO SCH (08:52)
--- NOTE | 2018-05-17 15:08 | PCM.PYCHPN ---
Psychiatric Progress Note - Psychiatric Progress Note Patient seen today, length of contact: 30 minutes Patient Chief Complaint: "I feel much better, I think I am ready to go home tomorrow" Problems Identified/Issues Discussed: Risk/benefits and alternatives of medications discussed, suicide/ homicide prevention, past psychiatric h/o, current psychiatric symptoms, medical problems, risk/benefits and alternatives of medications, medications compliance, coping strategies, substance abuse h/o, relapse prevention, importance of follow up with psychiatrist and therapist, discharge plan. Medical Problems: Please see Dr. Thornton's note for more detailed information. Diagnostic Results: Lab Results 05/15/18 08:00: RPR Nonreactive 05/15/18 08:00: Free T4 0.89, TSH 3rd Generation 2.22 05/15/18 08:00: Fasting Glucose 93, Triglycerides 218 H, Cholesterol 191, LDL Cholesterol Direct 115, HDL Cholesterol 40 Vital Signs Temp Pulse Resp BP 05/16/18 07:00 85 20 125/89 05/15/18 16:00 93 H 122/82 05/15/18 07:18 98.0 F 74 20 112/81 05/14/18 15:41 18 DSM 5 Symptoms Update: Shortly, patient is a 47-year old female with self-reported history of anxiety and depression, denied previous psychiatric admissions, patient has history of multiple somatic complaints which leads patient to multiple emergency room visits as well as medical floor admissions. Patient came to [facility] on multiple occasions complaining on: back pain, weakness, chest pain, lung nodule, headache and weakness. Altogether patient was in the emergency room 8 times since May 04, 2018. May 02, 2018, May 04, 2018, May 04, 2018, May 06, 2018, May 08, 2018, May 10, 2018, May 11, 2018, May 12, 2018, 2018 patient was transferred to the psychiatric inpatient unit. Patient currently under care or of nurse practitioner at 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 Please see admission notes for more information. Patient was seen today next to the nursing station, patient presented with improvement of her symptoms, patient was able to have logical conversation, hygiene much improved, patient was less anxious to compare with the medical admission. Patient had good ADLs. pt reported that her mood is "more stable", pt reported to have a good appetite and sleep. pt willing to be f/u with outpatient psychiatrist. pt denied psychosis, pt did not verbalized any somatic concerns. affect is more reactive and more appropriate. So far patient tolerates medications well, no side effects observed or reported, aims 0, no EPS. 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 Medication Change: Yes ( prozac incresed 05/16/18) Medical Record Reviewed: Yes Consults ordered or reviewed: Medical consultation appreciated Mental Status Examination - Cognitive Function Orientation: Person, Place, Situation, Time Memory: Intact Attention: Poor (improvement) Concentration: Poor (improvement) Association: WNL Fund of Knowledge: WNL - Mood Mood: Depressed ("I feel better"), Anxious ("I am not that anxious") - Affect Affect: Other (Labile) - Formal Thought Process Formal Thought Process: Delusions (Somatic, better) - Suicidal Ideation Suicidal Ideation: No - Homicidal Ideation Homicidal Ideation: No Goal/Treatment Plan - Goal/Treatment Plan Need for Continued Stay: Remain at risks for inpatient hospitalization, Severe depression anxiety, Discharge may exacerbated symptoms, Severe functional impairment Progress Toward Problem(s) and Goals/Treatment Plan: Milieu/structure/supportive therapy SW consultation for discharge plan and social issues Med management Prozac 30 mg for depression and anxiety Clonazepam 0.25 mg twice a day for anxiety and mood stabilization Geodon was started but patient refused to take it Family involvement Follow up on labs Will monitor closely Pt was educated about risk/benefits and alternatives of medications, coping strategies (safety plan, suicide prevention), relapse prevention, importance of follow up with psychiatrist and therapist, stay away from drugs/alcohol/smoking Estimated Date of D/C: 05/18/18
[2018-05-17] MEDS: Mometasone 0.1% Cream(15 gm) TOP SCH (17:34)
--- NOTE | 2018-05-18 00:38 | PN ---
DATE: 05/17/2018 SUBJECTIVE: The patient is in psych floor, seems stable. She is better. Complains of her right knee, rash and itchy, but otherwise she feels better. She has no other complaints. She has no nausea, no vomiting. She is stable. PHYSICAL EXAMINATION: VITAL SIGNS: Temperature 98.4, heart rate 90, blood pressure 127/84, respirations 20. HEAD AND NECK: Normal. No JVD. No thyromegaly. CHEST: Clear bilateral. CARDIAC: First sound and second sound normal. No murmur, rub, or gallop. ABDOMEN: Soft, obese, nontender. EXTREMITIES: No edema except right knee some mild papular rash on the right knee area, itchy. NEUROLOGIC: Normal. IMPRESSION AND PLAN: 1. Rash, probably some sort of allergic reaction or mosquito bite. We will give her hydrocortisone, Elocon and see how she does. 2. History of gastritis. Continue current medications. The patient also seems running low blood pressure, mild hypertension. We will switch to low salt diet. 3. Anxiety and depression. Continue Ativan. Continue Prozac. has been helping for some sort of antipsychotic therapy, seems to be doing well with that helping in sleep pattern and may be about her body to frequent psychosomatic symptoms. It seems working and seems to be doing well. Continue current therapy. Continue Protonix, milk of magnesia, Maalox and low salt diet for hypertension. Gerber Thornton MD
[2018-05-18 07:22] VITALS: BP 114/76; PULSE 94; TEMP 98.1
[2018-05-18] MEDS: Mometasone 0.1% Cream(15 gm) TOP SCH (09:14)
[2018-05-18] MEDS: Pantoprazole 40 mg EC Tab PO SCH (09:20)
--- NOTE | 2018-05-18 16:38 | PCM.PYCHDC ---
Mental Status Examination - Mental Status Examination Orientation: Person, Place, Situation, Time Memory: Intact Mood: Neutral Affect: Constricted (but reactive and mood congruent) Speech: Appropriate Attention: WNL Concentration: WNL Association: WNL Fund of Knowledge: WNL Formal Thought Process: No Impairment Description of patient's judgement and insight: Pt has improved insight into mental and medical illness, pt was compliant with medications and unit rules and regulations, pt was attending therapy groups, was calm, cooperative, socially appropriate, no behavioral incidents, no agitation, no aggression. Psychotic Thoughts and Behaviors: Pt denied v/a/t hallucinations, denied paranoid ideations, pt does not appear to be psychotic, and thought process is goal directed. Suicidal Ideation: No Current Homicidal Ideation?: No Plan: pt adamantly denied thoughts of harming self or others denied intent or plan. Discharge Summary - Discharge Note Reason for Hospitalization: Patient was transferred from the medical floor for evaluation and stabilization of somatic delusions, anxiety, depression, inability to function. Psychiatric History (includes Medical, Family, Personal Hx): See HPI Laboratory Data: Lab Results 05/15/18 08:00: RPR Nonreactive 05/15/18 08:00: Free T4 0.89, TSH 3rd Generation 2.22 05/15/18 08:00: Fasting Glucose 93, Triglycerides 218 H, Cholesterol 191, LDL Cholesterol Direct 115, HDL Cholesterol 40 Temp Pulse Resp BP Pulse Ox 98.1 F 94 H 20 114/76 05/18/18 07:21 05/18/18 07:21 05/18/18 07:21 05/18/18 07:21 see labs and vitals from the [facility] site Consultations:: List each consultation separately and include: 1. Reason for request. 2. Findings. 3. Follow-up Consultations: Medical consultation appreciated see notes for more detailed information Summary of Hospital Course include:: 1. Description of specific treatment plan utilized for patients during their course of treatmen. 2. Summarize the time- course for resolution of acute symptoms and/or regressed behaviors. 3. Describe issues identified and worked on during hospitalization. 4. Describe medication utilized. 5. Describe medical problems identified and treated. 6. Reassessment of suicide risk Summary of Hospital Course: Shortly, patient is a 47-year old female with self-reported history of anxiety and depression, denied previous psychiatric admissions, patient has history of multiple somatic complaints which leads patient to multiple emergency room visits as well as medical floor admissions. Patient came to [facility] on multiple occasions complaining on: back pain, weakness, chest pain, lung nodule, headache and weakness. Altogether patient was in the emergency room 8 times since May 04, 2018. May 02, 2018, May 04, 2018, May 04, 2018, May 06, 2018, May 08, 2018, May 10, 2018, May 11, 2018, May 12, 2018, 2018 patient was transferred to the psychiatric inpatient unit. Patient currently under care or of nurse practitioner at [facility][1], at the same time patient was noncompliant with his medications because "it was making me feel like a zombie", patient obviously requires further hospitalization, observation, med management this display card writer is very familiar with this patient from previous consultation services which took place here in [facility]. Please see admission notes for more information. Patient was seen today at the treatment team meeting, patient presented with improvement of her symptoms, patient was able to have logical conversation, hygiene much improved, patient was less anxious to compare with the medical admission. Patient had good ADLs. pls see admission note for more detailed info. pt was stabilized on the following meds: Prozac 30 mg for depression and anxiety Clonazepam 0.25 mg twice a day for anxiety and mood stabilization pt tolerated meds well, no side effects observed or reported, AIMS 0, no EPS> Over the course of this hospitalization pt was attending groups, pt also had medication management, had therapeutic milieu. Overall pt improved significantly, pt's affect became brighter, pt was less depressed, has realistic future oriented plans, pt also does not appear to be psychotic, or anxious, pt was socially appropriate, no behavioral issues, pts insight improved as well and soon pt deemed to be ready for discharge. At the time of the discharge patient pose no imminent danger to self or others, will be following up at [facility], information about follow u p appointment, time and address provided to the pt, (see SW note for more detailed information). It is a patient responsibility to follow up with outpatient clinic, PMD as well as specialists In case patient will need to obtain results of studies pending at discharge, patient was provided with contact information of Psychiatric Inpatient unit [phone] as well as Medical Record Department [phone], as well as [facility] team [phone]. pt does not use drugs or using alcohol, denied smoking pt was provided with prescriptions (see medication reconciliation form) Pt was educated about safety plan in case of worsening of symptoms or in case of suicidal or homicidal ideation call 911 or go to the nearest ER, also was educated to take meds as prescribed and stay away from drugs, pt verbalized understanding. Lab Results 05/15/18 08:00: Free T4 0.89, TSH 3rd Generation 2.22 05/15/18 08:00: Fasting Glucose 93, Triglycerides 218 H, Cholesterol 191, LDL Cholesterol Direct 115, HDL Cholesterol 40 Vital Signs Temp Pulse Resp BP 05/15/18 07:18 98.0 F 74 20 112/81 05/14/18 15:41 18 - Final Diagnosis (DSM 5) Condition upon Discharge: GOOD Disposition: HOME/ ROUTINE Follow-up Treatment Plan: At the time of the discharge patient pose no imminent danger to self or others, will be following up at [facility], information about follow up appointment, time and address provided to the pt, (see SW note for more detailed information). It is a patient responsibility to follow up with outpatient clinic, PMD as well as specialists In case patient will need to obtain results of studies pending at discharge, patient was provided with contact information of Psychiatric Inpatient unit [phone] as well as Medical Record Department [phone], as well as [facility] team [phone]. pt does not use drugs or using alcohol, denied smoking pt was provided with prescriptions (see medication reconciliation form) Pt was educated about safety plan in case of worsening of symptoms or in case of suicidal or homicidal ideation call 911 or go to the nearest ER, also was educated to take meds as prescribed and stay away from drugs, pt verbalized understanding. Prescriptions/Medication Reconciliation: clonazePAM [Klonopin] 0.25 mg PO BID #7 tab FLUoxetine [Prozac] 30 mg PO DAILY #45 cap - Smoking Cessation Smoking Cessation Medication prescribed: No Reason for not providing: denied smoking - Antipsychotic Medications Pt discharged on 2 or more routine antipsychotic medications: No
== END 2018-05-18 12:12 | disposition home or self-care (01) | DRG 425 ==
LOC: PSYC 13:28
PROVIDERS: ADMIT Psychiatry & Neurology Psychiatry; ATTEND Psychiatry & Neurology Psychiatry
DX: F41.0 Panic disorder [episodic paroxysmal anxiety] (principal); F90.9 Attention-deficit hyperactivity disorder, unspecified type; I10 Essential (primary) hypertension; F32.9 Major depressive disorder, single episode, unspecified; K21.9 Gastro-esophageal reflux disease without esophagitis; K29.70 Gastritis, unspecified, without bleeding; R21 Rash and other nonspecific skin eruption; R91.1 Solitary pulmonary nodule; Z91.14 Patient's other noncompliance with medication regimen